=== PATIENT | female | born 1930 | race Caucasian/White ===

== ENCOUNTER → 2016-08-27 | Outpatient (CLI) | payer MEDICARE ==
[~2016-08-27] VITALS: Ht 165.1 cm; Wt 95.3 kg
[~2016-08-27] MED LIST: ASP325TEC PO; ATN25T; BROM1POW5 MC; BROMELAIN PO; BUPIVACAINE 0.25% 30 ML (SENSORCAINE) VIAL ONE; CALCIUM PO; CHOL100011 PO; CHOL40002 PO; CLOP75TA PO; EZET10TA5 PO; GLIM1TAB PO; GLUC1TAB60 PO; GLUCOSAMINE HCL PO; HCT25T PO; HYDR-3454 PO; HYDR1TAB66 PO; ISM30TCR PO; LISI10TA PO; MTF500T; NEBI2.5T5 PO; OMEG-34 PO; OMG1KC PO; ONDAN4ODT PO; OXYC-12 PO; PRD20T PO; PRM25T PO; REPLENEX; RLX60T PO; SIMV20TA3 PO; SIMV40TA2 PO; SITA1TAB2 PO; SULF1TAB35 PO; TRIAMCINOLONE ACET (KENALOG-40) 40 MG/ML 1 ML VIAL ONE; [UNRECOGNIZED DRUG - OTHER]; [UNRECOGNIZED DRUG - OTHER] PO
--- OUTSIDE RECORDS SUMMARY | 2016-08-27 12:51 | XMS REPORT | Continuity of Care Document ---
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 Name Role Phone EVITA SARAVIA DO PCP Insurance Providers Payer Name Policy Number Subscriber Name Relationship Wps Medicare [id number] Leslie Stevenson 18 Self / Same As Patient Blue Cross [facility] Supp [id number] Leslie Stevenson 18 Self / Same As Patient Advance Directives Directive Response Recorded Date/Time Advance Directives Yes 05/07/16 12:33pm Health Care Power of Journal Clerk Yes 05/07/16 12:33pm Organ Donor Yes 05/07/16 12:33pm Resuscitation Status Full Code 05/07/16 12:33pm Problems Active Problems Medical Problem Onset Date Status Cat scratch of left lower leg Unknown Acute Medications Current Home Medications Medication Dose Units Route Directions Days/Qty Instructions Start Date Aspirin 325 Mg 325 Mg Oral Daily 08/14/08 Raloxifene Hcl 60 Mg 60 Mg Oral Daily 08/14/08 Sitagliptin Phos/Metformin Hcl 1 Each 5 - 500 Mg Oral Daily SUPPER TIME 12/11/10 Glimepiride 1 Mg 1 Mg Oral Daily SUPPER TIME 12/11/10 Nebivolol Hcl 2.5 Mg 2.5 Mg Oral Daily 12/11/10 Clopidogrel Bisulfate 75 Mg 75 Mg Oral Daily 12/11/10 Isosorbide Mononitrate 30 Mg 30 Mg Oral Daily 12/11/10 Hydrochlorothiazide 25 Mg 25 Mg Oral Daily 12/11/10 Hydrocodone Bit/Acetaminophen 1 Each 5 - 500 Mg Oral Daily as needed PRN FOR PAIN 12/11/10 [Replenex] Daily 09/08/12 [Green Tea Demetra] Daily 09/08/12 Lisinopril 10 Mg 10 Mg Oral Bedtime 09/08/12 Simvastatin 20 Mg 20 Mg Oral Bedtime 10/21/12 Cholecalciferol (Vitamin D3) 4,000 Unit 4,000 Unit Oral Daily [Calcium] 300 Mg Oral Daily 10/21/12 [Glucosamine Hcl] 300 Mg Oral Daily 10/21/12 [Bromelain] 1,500 Mg Oral Daily 10/21/12 [place]-3/Dha/Epa/Fish Oil 1 Each 1,500 Mg Oral Twice A Day 10/21/12 Hydrocodone Bit/Acetaminophen 1 Each 1 Each Oral 10/31/12 Ondansetron Hcl 4 Mg 4 Mg Oral Q 6 Hr Prn 10 10/31/12 Sulfamethoxazole/Trimethoprim 1 Each 1 Each Oral Twice A Day 20 Past Home Medications Medication Directions Ordered Status Simvastatin 40 Mg Tablet, 20 Mg Oral Bedtime 08/14/08 Discontinued Metformin Hcl 500 Mg Tab, 08/14/08 Discontinued Ezetimibe 10 Mg Tablet, 10 Mg Oral Bedtime 12/11/10 Discontinued Cholecalciferol 1,000 Unit Capsule, 4000 Unit Oral Daily 12/11/10 Discontinued [Calcium] , 1 Tab Oral Twice A Day 12/11/10 Discontinued [Multi Vitamin Pkts] , 2 Packet Oral Daily 12/11/10 Discontinued Hjwaoull-Pfdjjah-Cupo 149-Hyal 1 Each Tablet, 1 Each Oral Daily 12/11/10 Discontinued Oxycodone Hcl/Acetaminophen 1 Each Tablet, 1 - 2 Each Oral 4 - 6 Hrs as needed 12/14/10 Discontinued Promethazine Hcl 25 Mg Tab, 50 Mg Oral Every 6 Hours as needed 12/14/10 Discontinued Bromelains 1 Gm Powder, 1 Gm Miscell Daily 09/08/12 Discontinued Fish Oil 1,000 Mg Cap, 1000 Mg Oral Daily 09/08/12 Discontinued Social History Social History Problem Response Recorded Date/Time Alcohol Use Denies Use 01/16/2016 10:54pm Recreational Drug Use No 01/16/2016 10:54pm Recent Foreign Travel No 05/07/2016 12:35pm Recent Infectious Disease Exposure No 05/07/2016 12:35pm Sexually Transmitted Disease No 01/16/2016 10:54pm Do you dip or chew tobacco? No 01/16/2016 10:54pm Sexually Transmitted Disease No 01/16/2016 10:54pm Hx Sexually Transmitted Disorders No 10/30/2012 6:00am Hospital Discharge Instructions No hospital discharge instructions. Plan of Care Discharge Date 05/07/16 1:10pm Instructions/Education Provided DR. BRYANT-POST EPIDURAL INST Prescriptions See Medication Section Functional Status No functional status results. Allergies, Adverse Reactions, Alerts Allergen Type Severity Reaction Status Last Updated Cephalosporins ([id number]) Allergy Unknown Active 09/05/07 Tetanus Vaccines & Toxoid ([id number]) Allergy Unknown Active 01/17/16 Hydrochlorothiazide Allergy Unknown Active 09/05/07 Terbinafine Allergy Unknown Active 09/05/07 Immunizations No immunization records. Vital Signs Acute Vital Signs Vital Response Date/Time Temperature (Fahrenheit) 98.9 degrees F (97.6 - 99.5) 05/07/2016 12:34pm Temperature (Calculated Celsius) 37.20098 degrees C (36.4 - 37.5) 05/07/2016 12:34pm Temperature Source Tympanic 05/07/2016 12:34pm Pulse Rate (adult) 68 bpm (60 - 90) 05/07/2016 1:09pm Respiratory Rate 18 bpm (12 - 24) 05/07/2016 1:09pm O2 Sat by Pulse Oximetry 99 % (88 - 100) 05/07/2016 1:09pm Blood Pressure 153/85 mm Hg 05/07/2016 1:09pm Blood Pressure Mean 89 mm Hg 05/07/2016 12:34pm Pain Numeric Pain Scale 2 05/07/2016 1:09pm Height (Feet) 5 feet 05/07/2016 12:33pm Height (Inches) 6.00 inches 05/07/2016 12:33pm Height (Calculated Centimeters) 167.538395 cm 05/07/2016 12:33pm Weight (Pounds) 205 pounds 05/07/2016 12:33pm Weight (Ounces) 0.0 oz 05/07/2016 12:33pm Weight (Calculated Grams) 73095.44 gm 05/07/2016 12:33pm Weight (Calculated Kilograms) 92.752574 kilograms 05/07/2016 12:33pm Calculated BMI 33.1 05/07/2016 12:33pm Results No known relevant diagnostic tests, laboratory data and/or discharge summary. Procedures No known history of procedures. Encounters Encounter Location Arrival/Admit Date Discharge/Depart Date Attending Provider Registered Clinic [facility] 05/07/16 12:14pm MARIUSZ BRYANT MD
[2016-08-27 13:08] VITALS: BP 177/74
[2016-08-27 13:46] VITALS: BP 167/79
--- NOTE | 2016-08-27 14:49 | Pain Medicine-Procedure ---
Procedure Pre-Op/Post-Op Diagnosis Diagnosis: disc disorder with radiculopathy, lumbar Indications for Operation Low back pain Attending Surgeon Moni Procedure Date of Service: Aug 27, 2016 Procedure: Lumbar Epidural Steroid Injection at the L4-L5 level under Fluoroscopic Guidance Procedure: Patient was identified in the holding area. After risks, benefits, and alternatives were discussed with the patient, informed consent was obtained. Patient was brought to the fluoroscopy suite and placed prone on the procedure room table. A time out was performed. Vital signs were monitored throughout the procedure. The patients low back was prepped and draped in the usual sterile fashion. The patients skin was anesthetized using 2% Lidocaine. A Tuohy needle was inserted and advanced to the L4-L5 epidural space under fluoroscopic guidance using the loss of resistance technique and intermittent projection of fluoroscopy. There was no paresthesia with needle placement. The needle position was confirmed in both the AP and lateral view. After negative aspiration 2ml of contrast was injected under live fluoroscopy which showed good spread of the contrast in the epidural space at the appropriate level, there was no intravascular or subarachnoid spread. Again, after negative aspiration for heme or CSF, 2 ml of 0.25% Bupivicaine, 2ml of preservative free normal saline, and 80mg of Kenalog was injected. The needle was removed and a sterile bandage was placed and the patient was transferred to the recovery area in stable condition. After a brief period of observation, patient was discharged to home with no new neurological deficits and no apparent complications. Complications None MARIUSZ BRYANT MD Aug 27, 2016 2:49 pm
== END ==
LOC: CARD 12:47
PROVIDERS: ATTEND Pain Medicine Pain Medicine
DX: M51.16 Intervertebral disc disorders with radiculopathy, lumbar region (principal); Z79.899 Other long term (current) drug therapy; M16.12 Unilateral primary osteoarthritis, left hip; M70.61 Trochanteric bursitis, right hip
CPT/HCPCS: 62323

== ENCOUNTER → 2016-08-29 | Outpatient (CLI) | payer MEDICARE ==
[~2016-08-29] MED LIST changes: -BUPIVACAINE 0.25% 30 ML (SENSORCAINE) VIAL ONE; +CATHETER FLUSH 10 ML SYR IV PRN; +REGADENOSON 0.4 MG/5 ML SYR (LEXISCAN) IV ONE; -TRIAMCINOLONE ACET (KENALOG-40) 40 MG/ML 1 ML VIAL ONE
--- OUTSIDE RECORDS SUMMARY | 2016-08-29 08:33 | XMS REPORT | Continuity of Care Document ---
Author Author [facility] Organization [facility] Address Unknown Phone Unavailable Care Team Providers Care Delicatessen Manager Name Role Phone EVITA SARAVIA DO PCP Insurance Providers Payer Name Policy Number Subscriber Name Relationship Wps Medicare [id number] Leslie Stevenson 18 Self / Same As Patient Blue Cross [facility] Supp [id number] Leslie Stevenson 20 Self / Same As Patient Advance Directives Directive Response Recorded Date/Time Advance Directives Yes 05/07/16 12:33pm Health Care Power of Cash Register Operator Yes 05/07/16 12:33pm Organ Donor Yes 05/07/16 [...] 10/21/12 [Bromelain] 1,500 Mg Oral Daily 10/21/12 [place]-3/Dha/Epa/Fish Oil 1 Each 1,500 Mg Oral Twice [...] , 2 Packet Oral Daily 12/11/10 Discontinued Xpkklhaf-Sskhvvp-Xlbk 149-Hyal 1 Each Tablet, 1 Each Oral [...] Type Severity Reaction Status Last Updated Cephalosporins ([id number]) Allergy Unknown Active 09/05/07 Tetanus Vaccines & Toxoid ([id number]) Allergy Unknown Active 01/17/16 Hydrochlorothiazide Allergy Unknown Active 09/05/07 Terbinafine Allergy Unknown Active 09/05/07 Immunizations No immunization records. Vital Signs Acute Vital Signs Vital Response Date/Time Temperature (Fahrenheit) 98.9 degrees F (97.6 - 99.5) 05/07/2016 12:34pm Temperature (Calculated Celsius) 37.93852 degrees C (36.4 - 37.5) 05/07/2016 12:34pm [...] 6.00 inches 05/07/2016 12:33pm Height (Calculated Centimeters) 167.499661 cm 05/07/2016 12:33pm Weight (Pounds) 205 pounds 05/07/2016 12:33pm Weight (Ounces) 0.0 oz 05/07/2016 12:33pm Weight (Calculated Grams) 57088.44 gm 05/07/2016 12:33pm Weight (Calculated Kilograms) 92.332477 kilograms 05/07/2016 12:33pm Calculated BMI 33.1 05/07/2016 12:33pm Results No known relevant diagnostic tests, laboratory data and/or discharge summary. Procedures No known history of procedures. Encounters Encounter Location Arrival/Admit Date Discharge/Depart Date Attending Provider Registered Clinic [facility] 05/07/16 12:14pm MARIUSZ BRYANT MD
[2016-08-29 13:03] VITALS: BP 146/67
[2016-08-29 13:07] VITALS: BP 151/66
[2016-08-29 13:09] VITALS: BP 139/69
[2016-08-29 13:11] VITALS: BP 136/65
--- NOTE | 2016-08-30 09:28 | ECHOCARDIOGRAPHY REPORT ---
PROCEDURE PHYSICIAN: BASILIA BIRD DATE OF PROCEDURE: 08/29/2016 TWO DIMENSIONAL ECHOCARDIOGRAM REPORT PRIMARY PHYSICIAN: OTHER PHYSICIAN: REFERRING PHYSICIAN: Dr. Santacruz ORDERING PHYSICIAN: INDICATION FOR THE PROCEDURE: 1. Chest pain. 2. Coronary artery disease. MEASUREMENTS DERIVED VALUES LV DIAMETER (LAX) NORMALS NORMALS Diastolic 4.4 (3.6-5.2) Eject. Fract. 60% (60%+/-6%) Systolic (2.3-3.9) Diastolic Vol. % Shortening (0.22-0.42) Systolic Vol. Aortic Root IVS THICKNESS Diastolic 1.2 (0.6-1.1) LVPW THICKNESS Diastolic 1.2 (0.6-1.1) LA DIAMETER Systolic 3.7 (2.1-3.7) FINDINGS: 1. Technical quality is good. 2. The left ventricle is normal in size with moderate left ventricular hypertrophy noted diffusely. Systolic function appeared to be normal. Estimated ejection fraction 60%. Diastolic dysfunction is suggested by Doppler. 3. The left atrium is normal in size. No clot or thrombus were seen within the left atrium. 4. The right atrium and right ventricle are normal in size. No clot or thrombus were seen within the right side. 5. 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 No mitral valve prolapse. No mitral valve stenosis. 6. Aortic valve is trileaflet with normal opening and closing pattern. No significant aortic stenosis or regurgitation was seen. 7. Tricuspid valve is normal in morphology with mild tricuspid regurgitation noted by color Doppler flow. Doppler across tricuspid valve estimated pulmonary artery pressure of 27+ right atrial pressure. 8. Pulmonic valve is functioning normally. 9. No pericardial effusion. IN CONCLUSION: 1. Mild left ventricular hypertrophy noted diffusely with normal systolic function. Estimated ejection fraction 60%. Diastolic dysfunction is suggested by Doppler. 2. Mild mitral and tricuspid regurgitation. 3. Estimated pulmonary artery pressure of 35 mmHg. Job ID: [id number] Dictated Date: 08/29/2016 17:23:42 Letterer Date: 08/30/2016 09:23:32 / fredo
--- NOTE | 2016-08-30 12:13 | STRESS TEST ---
PROCEDURE PHYSICIAN: BASILIA BIRD LEXISCAN MYOVIEW STRESS TEST REPORT: DATE OF PROCEDURE: 08/29/2016 REFERRING PHYSICIAN: Dr. Santacruz INDICATION: Coronary artery disease, chest pain. Baseline heart rate is 63, baseline blood pressure: 145/65. Baseline EKG: Sinus rhythm with no ischemic changes. SUMMARY: The patient was injected with 10.69 mCi of technetium 99 Myoview and the resting images were obtained. Then the patient received 0.4 mg of Lexiscan followed by 31.2 mCi of technetium 99 Myoview. Throughout the test, there were no EKG changes. The resting and stress images were reviewed and compared in the short axis, horizontal long axis, and vertical long axis views. Review of the images showed breast attenuation affecting the quality of the images with no significant ischemia or infarction on SPECT images. SSS is 1, SDS 1, TID value 1.03. On the gated images, the left ventricle is appeared to be normal size with normal contractility. Calculated ejection fraction 72%. CONCLUSION: 1. The patient tolerated Lexiscan well. 2. Breast attenuation affecting the quality of the images with no significant ischemia or infarction on SPECT images. 3. Normal left ventricular size with normal contractility. Calculated ejection fraction 72%. Job ID: [id number] Dictated Date: 08/30/2016 08:42:40 Director Of Employer Services Date: 08/30/2016 12:07:31 / wolf
== END ==
LOC: CARD 08:30
PROVIDERS: ATTEND Internal Medicine Cardiovascular Disease
DX: I25.10 Atherosclerotic heart disease of native coronary artery without angina pectoris (principal); I65.23 Occlusion and stenosis of bilateral carotid arteries; I10 Essential (primary) hypertension; E78.2 Mixed hyperlipidemia; R07.9 Chest pain, unspecified
CPT/HCPCS: 78452; 93017; 93306

== ENCOUNTER 2016-08-31 23:37 | Emergency (ER) | payer MEDICARE ==
[~2016-08-31] VITALS: Ht 165.1 cm; Wt 94.8 kg
[~2016-08-31 23:37] MED LIST changes: -CATHETER FLUSH 10 ML SYR IV PRN; -PRD20T PO; -REGADENOSON 0.4 MG/5 ML SYR (LEXISCAN) IV ONE
--- OUTSIDE RECORDS SUMMARY | 2016-08-31 23:44 | XMS REPORT | Continuity of Care Document ---
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 Machine Operator Name Role Phone EVITA SARAVIA DO PCP Insurance Providers Payer Name Policy Number Subscriber Name Relationship Wps Medicare [id number] Leslie Stevenson 20 Self / Same As Patient Blue Cross [facility] Supp [id number] Leslie Stevenson 20 Self / Same As Patient Advance Directives Directive Response Recorded Date/Time Advance Directives Yes 05/07/16 12:33pm Health Care Power of Receiving Coordinator Yes 05/07/16 12:33pm Organ Donor Yes 05/07/16 [...] 10/21/12 [Bromelain] 1,500 Mg Oral Daily 10/21/12 [place]-3/Dha/Epa/Fish Oil 1 Each 1,500 Mg Oral Twice [...] , 2 Packet Oral Daily 12/11/10 Discontinued Firiylfp-Sfsrlzy-Ptie 149-Hyal 1 Each Tablet, 1 Each Oral [...] Type Severity Reaction Status Last Updated Cephalosporins ([id number]) Allergy Unknown Active 09/05/07 Tetanus Vaccines & Toxoid ([id number]) Allergy Unknown Active 01/17/16 Hydrochlorothiazide Allergy Unknown Active 09/05/07 Terbinafine Allergy Unknown Active 09/05/07 Immunizations No immunization records. Vital Signs Acute Vital Signs Vital Response Date/Time Temperature (Fahrenheit) 98.9 degrees F (97.6 - 99.5) 05/07/2016 12:34pm Temperature (Calculated Celsius) 37.54801 degrees C (36.4 - 37.5) 05/07/2016 12:34pm [...] 6.00 inches 05/07/2016 12:33pm Height (Calculated Centimeters) 167.436332 cm 05/07/2016 12:33pm Weight (Pounds) 205 pounds 05/07/2016 12:33pm Weight (Ounces) 0.0 oz 05/07/2016 12:33pm Weight (Calculated Grams) 73014.44 gm 05/07/2016 12:33pm Weight (Calculated Kilograms) 92.648753 kilograms 05/07/2016 12:33pm Calculated BMI 33.1 05/07/2016 12:33pm Results No known relevant diagnostic tests, laboratory data and/or discharge summary. Procedures No known history of procedures. Encounters Encounter Location Arrival/Admit Date Discharge/Depart Date Attending Provider Registered Clinic [facility] 05/07/16 12:14pm MARIUSZ BRYANT MD
[2016-09-01] MEDS ORDERED: predniSONE 20 MG TAB PO ONE (01:30)
--- NOTE | 2016-09-01 01:30 | ED Respiratory ---
General Chief Complaint: Chest Wall/Rib Pain Stated Complaint: SOB,SORENESS OF CHEST FROM COUGHING Nursing Triage Note: wyatt rib and back pain due to cough. pt saw physican earlier today prescribed levoquin and instruted to take home pain medication. pt states has not taken any pain med today. Source: patient Exam Limitations: no limitations History of Present Illness Time seen by provider: 01:10 Initial Comments Here with report of persistent cough. She did see her doctor earlier yesterday and was started on Levaquin. She also was given prescription for pain medicine but she is afraid to take that. States the cough is been going on for a couple of days and is much worse tonight. Also complains of nasal congestion and runny nose. She has taken one dose of her antibiotic. Denies nausea or vomiting. Complains of pain to her ribs on the lower aspect bilateral with each cough and some mild wheezing. Timing/Duration: getting worse, other (2 days) Severity: moderate Prior Episodes/Possible Cause: occasional episodes Associated Symptoms: coughNo fever/chills, nasal congestion nasal drainage shortness of breath wheezing Allergies and Home Medications Allergies Coded Allergies: Cephalosporins (Verified Allergy, Unknown, 09/05/07) Tetanus Vaccines and Toxoid (Unverified Allergy, Unknown, 01/17/16) hydrochlorothiazide (Verified Allergy, Unknown, 09/05/07) terbinafine (Verified Allergy, Unknown, 09/05/07) Home Medications DAILY (Reported) DAILY (Reported) 300 MG PO DAILY (Reported) 300 MG PO DAILY (Reported) 1,500 MG PO DAILY (Reported) Aspirin 325 Mg Tabec 325 MG PO DAILY (Reported) Cholecalciferol (Vitamin D3) 4,000 Unit Capsule 4,000 UNIT PO DAILY (Reported) Clopidogrel Bisulfate 75 Mg Tablet 75 MG PO DAILY (Reported) Glimepiride 1 Mg Tablet 1 MG PO DAILY (Reported) SUPPER TIME Hydrochlorothiazide 25 Mg Tablet 25 MG PO DAILY (Reported) Hydrocodone Bit/Acetaminophen 1 Each Tablet 5-500 MG PO DAILY PRN PRN (Reported ) PRN FOR PAIN Hydrocodone Bit/Acetaminophen 1 Each Tablet 1 EACH PO (Reported) Isosorbide Mononitrate 30 Mg Tab 30 MG PO DAILY (Reported) Lisinopril 10 Mg Tablet 10 MG PO HS (Reported) Nebivolol Hcl 2.5 Mg Tablet 2.5 MG PO DAILY (Reported) [place]-3/Dha/Epa/Fish Oil 1 Each Capsule 1,500 MG PO BID (Reported) Ondansetron Hcl 4 Mg Tab #10 4 MG PO Q 6 HR PRN (Reported) Raloxifene Hcl 60 Mg Tab 60 MG PO DAILY (Reported) Simvastatin 20 Mg Tablet 20 MG PO HS (Reported) Sitagliptin Phos/Metformin Hcl 1 Each Tablet 5-500 MG PO DAILY (Reported) SUPPER TIME Sulfamethoxazole/Trimethoprim 1 Each Tablet #20 1 EACH PO BID Prescribed by: TEJAL BARTLETT on 01/16/16 [id number] Constitutional: see HPINo chills, No fever EENTM: nose congestion see HPI Respiratory: see HPI cough wheezing Cardiovascular: see HPINo palpitations Gastrointestinal: no symptoms reported Genitourinary: no symptoms reported incontinence (stress) : No All Other Systems Reviewed Negative Unless Noted: Yes Past Becmsqn-Fkxkdf-Ywfcvv Hx Patient Social History Alcohol Use: Denies Use Recreational Drug Use: No Smoking Status: Never a Smoker Recent Foreign Travel: No Contact w/Someone Who Travel: No Recent Infectious Disease Expo: No Immunizations Up To Date Tetanus Booster (TDap): More than 5yrs Date of Pneumonia Vaccine: Oct 31, 2007 Date of Influenza Vaccine: Mar 31, 2012 Surgeries HX Surgeries: Yes (STENT PLACED) Surgeries: Cardiac, Coronary Stent Respiratory Hx Respiratory Disorders: No Cardiovascular Hx Cardiac Disorders: Yes (VARICOSE VEINS) Cardiac Disorders: Coronary Artery Disease, High Cholesterol, Hypertension Neurological Hx Neurological Disorders: No Reproductive System Hx Reproductive Disorders: No Sexually Transmitted Disease: No Genitourinary Hx Genitourinary Disorders: No Gastrointestinal Hx Gastrointestinal Disorders: Yes Gastrointestinal Disorders: Gastroesophageal Reflux Musculoskeletal Hx Musculoskeletal Disorders: Yes Musculoskeletal Disorders: Arthritis Endocrine Hx Endocrine Disorders: Yes Endocrine Disorders: Diabetes, Non-Insulin dep HEENT HX ENT Disorders: No Cancer Hx Cancer: No Psychosocial Hx Psychiatric Problems: No Integumentary HX Skin/Integumentary Disorder: No Blood Transfusions Hx Blood Disorders: No Reviewed Nursing Assessment Reviewed/Agree w Nursing PMH: Yes Family Medical History Significant Family History: No Pertinent Family Hx Physical Exam Vital Signs Vital Sign - Last 12Hours 08/31/16 23:51 Temp 98.0 Pulse 87 Resp 20 B/P 172/70 Pulse Ox 96 O2 Delivery Room Air Capillary Refill : NONE General Appearance: WD/WN no apparent distress HEENT: PERRL/EOMI pharynx normal other (moderate nasal congestion bilaterally with clear rhinorrhea and moderate erythema) Neck: full range of motion supple Respiratory: no respiratory distress no accessory muscle use wheezing (mild bilateral) Cardiovascular: regular rate, rhythm no murmur Gastrointestinal: non tender soft Neurologic/Psychiatric: alert oriented x 3 Progress/Results/Core Measures Results/Orders My Orders Orders-ALVAREZ CHAMBERS MD Chest Pa/Lat (2 View) (09/01/16 00:15) Prednisone Tablet (Deltasone Tablet) (09/01/16 01:30) Vital Signs/I&O Vital Sign - Last 12Hours 08/31/16 23:51 Temp 98.0 Pulse 87 Resp 20 B/P 172/70 Pulse Ox 96 O2 Delivery Room Air Blood Pressure Mean: 104 Progress Note : Progress Note Seen and evaluated. Chest x-ray ordered. Prednisone 40 mg by mouth. Discharged home with return precautions. Patient verbalize understanding instructions and agreement with plan. Diagnostic Imaging Diagonstic Imaging: Xray Plain Films/CT/US/NM/MRI: chest Comments Two-view chest x-ray shows no obvious infiltrate or pneumothorax. Reviewed: Reviewed by Me Departure Impression Impression: Primary Impression: Bronchitis Additional Impression: Upper respiratory infection Qualified Code: J06.9 - Acute upper respiratory infection, unspecified Disposition: HOME, SELF-CARE Condition: Stable Departure-Patient Inst. Decision time for Depature: 01:30 Referrals: EVITA SARAVIA DO (PCP/Family) Primary Care Physician Patient Instructions: Acute Bronchitis, Adult (DC), Viral Upper Respiratory Infection, Adult (DC) Add. Discharge Instructions: All discharge instructions reviewed with patient and/or family. Voiced understanding. Take medications as directed. You may use Afrin nasal spray or the generic, 12 hour relief, 2 sprays to each nostril twice daily for 3 days only and then stop. You may use the hydrocodone one tablet every 4-6 hours as needed for chest wall pain. Take the first prescribed dose of the prednisone on Saturday morning. Follow-up with your DrSalvador on Saturday if not improving. Return for worse pain, fever, vomiting, breathing problems or other concerns as needed. Drink plenty of fluids. Scripts Prednisone 20 Mg Tab40 Mg PO DAILY #6 TAB Prov:ALVAREZ CHAMBERS MD 09/01/16 ALVAREZ CHAMBERS MD Sep 01, 2016 01:30
[2016-09-01] MEDS ORDERED: PRD20T PO (01:33)
[2016-09-01 01:45] VITALS: BP 162/79
--- NOTE | 2016-09-01 06:54 | Diagnostic Imaging Report ---
Clinical indication: Patient with cough and congestion. Exam: Chest x-ray PA and lateral views. Comparisons: Chest x-ray dated 03/16/2013. Findings: Lungs/pleura: There is minimal bibasilar atelectasis. Otherwise, lungs are clear. There is no pneumothorax. There is no pleural effusion. Mediastinum: Unremarkable. Pulmonary vasculature: Unremarkable. Heart: There is mild cardiomegaly. Bones/extrathoracic soft tissue: There are hypertrophic degenerative osteophytes scattered throughout the thoracic spine. Impression: 1: There is minimal bibasilar atelectasis. Otherwise, there is no radiographic evidence of acute cardiopulmonary process. 2: Mild cardiomegaly with no significant pulmonary vascular congestion. Dictated by: Dictated on workstation # [id number]
== END 2016-09-01 01:55 | disposition home or self-care (01) ==
LOC: EDUNIT# 23:37 → ER 23:41
DX: J40 Bronchitis, not specified as acute or chronic (principal); R06.9 Unspecified abnormalities of breathing; I10 Essential (primary) hypertension; E11.9 Type 2 diabetes mellitus without complications; Z79.84 Long term (current) use of oral hypoglycemic drugs; Z79.899 Other long term (current) drug therapy; Z79.02 Long term (current) use of antithrombotics/antiplatelets; Z95.5 Presence of coronary angioplasty implant and graft
CPT/HCPCS: 71020; 99282

== ENCOUNTER 2016-11-02 09:35 | Outpatient (CLI) | payer MEDICARE ==
[~2016-11-02] VITALS: Ht 165.1 cm; Wt 94.8 kg
[~2016-11-02 09:35] MED LIST changes: +PRD20T PO
[2016-11-02] MEDS ORDERED: BUPIVACAINE 0.25% 30 ML (SENSORCAINE) VIAL ONE (09:50)
[2016-11-02] MEDS ORDERED: TRIAMCINOLONE ACET (KENALOG-40) 40 MG/ML 1 ML VIAL ONE (09:50)
[2016-11-02 09:55] VITALS: BP 140/69
[2016-11-02 11:10] VITALS: BP 151/67
--- NOTE | 2016-11-02 12:31 | Pain Medicine-Procedure ---
Procedure Pre-Op/Post-Op Diagnosis Diagnosis: disc disorder with radiculopathy, lumbar Indications for Operation Low back pain Attending Surgeon Moni Procedure Date of Service: Nov 02, 2016 Procedure: Lumbar Epidural Steroid Injection at the L4-L5 level under Fluoroscopic Guidance Procedure: Patient was identified in the holding area. After risks, benefits, and alternatives were discussed with the patient, informed consent was obtained. Patient was brought to the fluoroscopy suite and placed prone on the procedure room table. A time out was performed. Vital signs were monitored throughout the procedure. The patients low back was prepped and draped in the usual sterile fashion. The patients skin was anesthetized using 2% Lidocaine. A Tuohy needle was inserted and advanced to the L4-L5 epidural space under fluoroscopic guidance using the loss of resistance technique and intermittent projection of fluoroscopy. There was no paresthesia with needle placement. The needle position was confirmed in both the AP and lateral view. After negative aspiration 2ml of contrast was injected under live fluoroscopy which showed good spread of the contrast in the epidural space at the appropriate level, there was no intravascular or subarachnoid spread. Again, after negative aspiration for heme or CSF, 2 ml of 0.25% Bupivicaine, 2ml of preservative free normal saline, and 80mg of Kenalog was injected. The needle was removed and a sterile bandage was placed and the patient was transferred to the recovery area in stable condition. After a brief period of observation, patient was discharged to home with no new neurological deficits and no apparent complications. Complications None MARIUSZ BRYANT MD Nov 02, 2016 12:31 pm
== END 2016-11-02 11:17 | disposition home or self-care (01) ==
LOC: CARD 09:35
PROVIDERS: ATTEND Pain Medicine Pain Medicine
DX: M51.16 Intervertebral disc disorders with radiculopathy, lumbar region (principal); Z79.899 Other long term (current) drug therapy
CPT/HCPCS: 62323

== ENCOUNTER 2016-12-14 08:33 | Outpatient (CLI) | payer MEDICARE ==
[~2016-12-14] VITALS: Ht 165.1 cm; Wt 92.5 kg
[2016-12-14] MEDS ORDERED: BUPIVACAINE 0.25% 30 ML (SENSORCAINE) VIAL ONE (08:48)
[2016-12-14] MEDS ORDERED: TRIAMCINOLONE ACET (KENALOG-40) 40 MG/ML 1 ML VIAL ONE (08:48)
[2016-12-14 09:01] VITALS: BP 124/69
[2016-12-14 09:31] VITALS: BP 146/68
--- NOTE | 2016-12-14 12:39 | Pain Medicine-Procedure ---
Procedure Pre-Op/Post-Op Diagnosis Diagnosis: disc disorder with radiculopathy, lumbar Indications for Operation Low back and hip pain Attending Surgeon Moni Procedure Date of Service: December 14, 2016 Procedure: Lumbar Epidural Steroid Injection at the L4-L5 Level under Fluoroscopic Guidance and left sacroiliac joint injection Procedure: Patient was identified in the holding area. After risks, benefits, and alternatives were discussed with the patient, informed consent was obtained. Patient was brought to the fluoroscopy suite and placed prone on the procedure room table. A time out was performed. Vital signs were monitored throughout the procedure. The patients low back was prepped and draped in the usual sterile fashion. The patients skin was anesthetized using 2% Lidocaine. A Tuohy needle was inserted and advanced to the L4-L5 epidural space under fluoroscopic guidance using the loss of resistance technique and intermittent projection of fluoroscopy. There was no paresthesia with needle placement. The needle position was confirmed in both the AP and lateral view. After negative aspiration 2ml of non-ionic contrast was injected under live fluoroscopy which showed good spread of the contrast in the epidural space at the appropriate level, there was no intravascular or subarachnoid spread. Again, after negative aspiration for heme or CSF, 2 ml of 0.25% Bupivicaine, 2ml of preservative free normal saline, and 80mg of Kenalog was injected. The needle was removed and a sterile bandage was placed. Attention was then directed to the left sacroiliac joint which was identified under fluoroscopic guidance. The skin overlying the posterior inferior one third of the sacroiliac joint was anesthetized with 1 percent lidocaine and a 22 -gauge 3-1/2 inch needle was inserted and advanced into the joint. Following negative aspiration a total of 40 mg of Kenalog and 2 mL of 0.25 percent bupivacaine was injected. Needle was flushed with lidocaine and removed. Sterile bandage was applied. Patient tolerated the procedures well with no apparent complications. Complications None MARIUSZ BRYANT MD December 14, 2016 12:39 pm
== END 2016-12-14 09:33 ==
LOC: CARD 08:33
PROVIDERS: ATTEND Pain Medicine Pain Medicine
DX: M53.3 Sacrococcygeal disorders, not elsewhere classified (principal); M51.16 Intervertebral disc disorders with radiculopathy, lumbar region; Z79.84 Long term (current) use of oral hypoglycemic drugs
CPT/HCPCS: 27096; 62323

== ENCOUNTER → 2017-02-01 | Outpatient (CLI) | payer MEDICARE ==
--- NOTE | 2017-02-01 14:25 | Diagnostic Imaging Report ---
PROCEDURE: US left lower extremity venous. INDICATION: Left calf pain and swelling. COMPARISON: None. TECHNIQUE: The left lower extremity deep venous system was interrogated from the common femoral vein through the popliteal vein. These images were assessed for grayscale appearance, color and spectral Doppler blood flow, compression, and augmentation. FINDINGS: There is no evidence of intraluminal filling defect. Normal compression and augmentation is noted throughout. Soft tissues are unremarkable. IMPRESSION: 1. No sonographic evidence of deep venous thrombosis in the left lower extremity. Dictated by: Dictated on workstation # [id number]
--- NOTE | 2017-02-01 14:33 | Diagnostic Imaging Report ---
INDICATION: Left knee pain. FINDINGS: Three view show smooth articulating surfaces. Joint space is mildly narrowed medially on nonweightbearing images. There are mild osteophytes along the medial femoral condyle and tibial plateau. The patellofemoral joint appears normal. There are no fractures. No chondrocalcinosis or loose bodies. IMPRESSION: Mild degenerative changes in the medial compartment. Dictated by: Dictated on workstation # [id number]
== END ==
LOC: RAD 13:50
PROVIDERS: ATTEND Nurse Practitioner Family
DX: M79.662 Pain in left lower leg (principal); R22.42 Localized swelling, mass and lump, left lower limb
CPT/HCPCS: 73562

== ENCOUNTER 2017-08-06 11:39 | Emergency (ER) | payer MEDICARE ==
[~2017-08-06] VITALS: Ht 165.1 cm; Wt 90.7 kg
--- NOTE | 2017-08-06 13:08 | ED Lower Extremity ---
General Chief Complaint: Lower Extremity Stated Complaint: RT CALF PAIN Nursing Triage Note: Pt c/o R calf pain x2 days Nursing Sepsis Screen: No Definite Risk Source: patient Exam Limitations: no limitations History of Present Illness Time seen by provider: 12:58 Initial Comments Here with report of right calf pain for the last 2 days. Not sure if she injured it or what but is concerned about blood clots. She does admit to lifting her several times over the last couple weeks. Denies shortness of breath or other concerns. Onset: other (2 days) Severity: mild, moderate Pain/Injury Location: right leg Method of Injury: unknown Modifying Factors: Worse With Movement, Improves With Rest Allergies and Home Medications Allergies Coded Allergies: Cephalosporins (Verified Allergy, Unknown, 09/05/07) Tetanus Vaccines and Toxoid (Unverified Allergy, Unknown, 01/17/16) hydrochlorothiazide (Verified Allergy, Unknown, 09/05/07) terbinafine (Verified Allergy, Unknown, 09/05/07) Home Medications Aspirin 325 Mg Tabec, 325 MG PO DAILY, (Reported) Cholecalciferol (Vitamin D3) 4,000 Unit Capsule, 4,000 UNIT PO DAILY, (Reported) Clopidogrel Bisulfate 75 Mg Tablet, 75 MG PO DAILY, (Reported) Glimepiride 1 Mg Tablet, 1 MG PO DAILY, (Reported) SUPPER TIME Hydrochlorothiazide 25 Mg Tablet, 25 MG PO DAILY, (Reported) Hydrocodone Bit/Acetaminophen 1 Each Tablet, 5-500 MG PO DAILY PRN, (Reported) PRN FOR PAIN Hydrocodone Bit/Acetaminophen 1 Each Tablet, 1 EACH PO, (Reported) Isosorbide Mononitrate 30 Mg Tab, 30 MG PO DAILY, (Reported) Lisinopril 10 Mg Tablet, 10 MG PO HS, (Reported) Nebivolol Hcl 2.5 Mg Tablet, 2.5 MG PO DAILY, (Reported) Piedmont-3/Dha/Epa/Fish Oil 1 Each Capsule, 1,500 MG PO BID, (Reported) Ondansetron Hcl 4 Mg Tab, 4 MG PO Q 6 HR PRN, #10 (Reported) Prednisone 20 Mg Tab, 40 MG PO DAILY, #6 Prescribed by: ALVAREZ CHAMBERS on 09/01/16 0133 Raloxifene Hcl 60 Mg Tab, 60 MG PO DAILY, (Reported) Simvastatin 20 Mg Tablet, 20 MG PO HS, (Reported) Sitagliptin Phos/Metformin Hcl 1 Each Tablet, 5-500 MG PO DAILY, (Reported) SUPPER TIME Sulfamethoxazole/Trimethoprim 1 Each Tablet, 1 EACH PO BID, #20 Prescribed by: TEJAL BARTLETT on 01/16/16 2321 [Bromelain] , 1,500 MG PO DAILY, (Reported) [Calcium] , 300 MG PO DAILY, (Reported) [Glucosamine Hcl] , 300 MG PO DAILY, (Reported) [green tea lakhwinder] , DAILY, (Reported) [replenex] , DAILY, (Reported) Constitutional: see HPI, No chills, No fever Respiratory: no symptoms reported Cardiovascular: No chest pain, edema (right leg), No palpitations Gastrointestinal: No abdominal pain, No nausea, No vomiting Musculoskeletal: joint pain, muscle pain, muscle stiffness Skin: No change in color, No lesions Psychiatric/Neurological: Denies Numbness, Denies Tingling Past Moowrhe-Qhbynu-Moehne Hx Patient Social History Alcohol Use: Denies Use Recreational Drug Use: No Smoking Status: Never a Smoker Recent Foreign Travel: No Contact w/Someone Who Travel: No Recent Infectious Disease Expo: No Recent Hopitalizations: No Physical Abuse: No Sexual Abuse: No Mistreated: No Fear: No Immunizations Up To Date Tetanus Booster (TDap): More than 5yrs Date of Pneumonia Vaccine: Oct 31, 2007 Date of Influenza Vaccine: Mar 31, 2012 Seasonal Allergies Seasonal Allergies: No Surgeries History of Surgeries: Yes (right rotator cuff 2013) Surgeries: Cardiac, Coronary Stent, Gallbladder, Tonsillectomy Respiratory History of Respiratory Disorde: No Cardiovascular History of Cardiac Disorders: Yes (VARICOSE VEINS) Cardiac Disorders: Coronary Artery Disease, High Cholesterol, Hypertension Neurological History of Neurological Disord: No Reproductive System Hx Reproductive Disorders: No Sexually Transmitted Disease: No Gastrointestinal History of Gastrointestinal Di: Yes Gastrointestinal Disorders: Gastroesophageal Reflux Musculoskeletal History of Musculoskeletal Dis: Yes Musculoskeletal Disorders: Arthritis Endocrine History of Endocrine Disorders: Yes Endocrine Disorders: Diabetes, Non-Insulin dep HEENT History of HEENT Disorders: No Cancer History of Cancer: No Psychosocial History of Psychiatric Problem: No Suicide Risk Score: 1 Integumentary History of Skin or Integumenta: No Blood Transfusions History of Blood Disorders: No Reviewed Nursing Assessment Reviewed/Agree w Nursing PMH: Yes Family Medical History Significant Family History: No Pertinent Family Hx Physical Exam Vital Signs Vital Sign - Last 12Hours 08/06/17 12:42 Temp 98.5 Pulse 96 Resp 18 B/P (MAP) 160/63 (95) Pulse Ox 96 O2 Delivery Room Air Capillary Refill : Less Than 3 Seconds General Appearance: WD/WN, no apparent distress Cardiovascular: regular rate, rhythm, no murmur Respiratory: lungs clear, normal breath sounds Legs: left leg non-tender, left leg normal inspection, bilateral leg normal range of motion, right leg pain, right leg swelling Ankles: left ankle non-tender, left ankle normal inspection, bilateral ankle normal range of motion, right ankle swelling Neurologic/Psychiatric: alert, oriented x 3 Skin: normal color Progress/Results/Core Measures Results/Orders My Orders Orders - ALVAREZ CHAMBERS MD Venous Lower Ext Rt (08/06/17 13:06) Vital Signs/I&O Vital Sign - Last 12Hours 08/06/17 12:42 Temp 98.5 Pulse 96 Resp 18 B/P (MAP) 160/63 (95) Pulse Ox 96 O2 Delivery Room Air Blood Pressure Mean: 95 Progress Note : Progress Note Seen and evaluated. Ultrasound right lower extremity ordered. This was negative. Discharged home with return precautions. Patient verbalize understanding instructions and agreement with plan. Diagnostic Imaging Diagonstic Imaging: Ultrasound Plain Films/CT/US/NM/MRI: leg Comments NAME: LESLIE STEVENSON [facility] REC#: [id number] PT STATUS: REG ER : 1930 PHYSICIAN: ALVAREZ CHAMBERS MD ADMIT DATE: 08/06/17/ER Signed Date of Exam: 08/06/17 US VENOUS LOWER EXT RT INDICATION: Right leg pain. Right leg venous Doppler study was performed in the routine fashion with color flow Doppler and waveform analysis. FINDINGS: The right common femoral vein, superficial femoral vein, popliteal vein and visualized portion of the tibial veins show normal compressibility and venous flow patterns. There is normal augmentation. IMPRESSION: No evidence of deep vein thrombosis of the major veins of the right leg. Dictated by: Dictated on workstation # [id number] Dict: 08/06/17 1406 Trans: 08/06/17 1410 Interpreted by: CHILO PLUMMER MD Electronically signed by: CHILO PLUMMER MD 08/06/17 3377 Departure Impression Impression: Primary Impression: Right leg pain Additional Impression: Right leg swelling Disposition: HOME, SELF-CARE Condition: Improved Departure-Patient Inst. Decision time for Depature: 14:50 Referrals: EVITA SARAVIA DO (PCP/Family) Primary Care Physician Patient Instructions: Lower Extremity Muscle Strain (DC) Add. Discharge Instructions: All discharge instructions reviewed with patient and/or family. Voiced understanding. Follow-up with your Dr. in a few days for recheck as needed. Continue home medications as directed. You should elevate her leg several times daily to help reduce swelling. Return for worse pain, weakness, breathing problems, fever or other concerns as needed. Copy Copies To 1: EVITA SARAVIA TIMOTHY D MD Aug 06, 2017 13:08
--- NOTE | 2017-08-06 14:13 | Diagnostic Imaging Report ---
INDICATION: Right leg pain. Right leg venous Doppler study was performed in the routine fashion with color flow Doppler and waveform analysis. FINDINGS: The right common femoral vein, superficial femoral vein, popliteal vein and visualized portion of the tibial veins show normal compressibility and venous flow patterns. There is normal augmentation. IMPRESSION: No evidence of deep vein thrombosis of the major veins of the right leg. Dictated by: Dictated on workstation # [id number]
[2017-08-06 15:00] VITALS: BP 145/86
== END 2017-08-06 15:01 | disposition home or self-care (01) ==
LOC: EDUNIT# 11:39 → ER 11:41
DX: M79.661 Pain in right lower leg (principal); M79.89 Other specified soft tissue disorders; I25.10 Atherosclerotic heart disease of native coronary artery without angina pectoris; E78.00 Pure hypercholesterolemia, unspecified; I10 Essential (primary) hypertension; K21.9 Gastro-esophageal reflux disease without esophagitis; E11.9 Type 2 diabetes mellitus without complications; Z95.5 Presence of coronary angioplasty implant and graft; Z90.89 Acquired absence of other organs; Z79.82 Long term (current) use of aspirin; X50.0XXA Overexertion from strenuous movement or load, initial encounter
CPT/HCPCS: 99283

== ENCOUNTER → 2017-10-12 | Outpatient (CLI) | payer MEDICARE ==
--- NOTE | 2017-10-12 10:39 | Diagnostic Imaging Report ---
PROCEDURE: MRI lumbar spine. TECHNIQUE: Multiplanar, multisequence MRI of the lumbar spine was performed without contrast. DATE: 10/12/2017. COMPARISON: MRI lumbar spine 12/03/2015. INDICATION: 86-year-old female, low back pain. FINDINGS: L5-S1 is labeled as having a rudimentary disc. If spinal intervention is to be performed in the future, recommend careful correlation with levels. There is grade 1 anterolisthesis of L5 on S1 measuring 3.5 mm. There is minimal grade 1 anterolisthesis of L4 on L5. The visualized cord and conus medullaris is unremarkable and terminates at the L2-L3 level. There is a T1 and T2 hyperintense lesion in the T11 vertebral body compatible with benign vertebral body hemangioma. There are disc degenerative changes of the lower thoracic spine. There is moderate disc height loss at L1-L2. There is mild disc height loss at L3-L4. There is moderate to severe disc height loss at L4-L5. There is moderate disc height loss at L5-S1. There is no identified compression deformity. There is no evidence of marrow infiltrating or replacing process. There is benign T1 and T2 hyperintense signal in the S2 segment which may relate to hemangioma. L2-L3: There is minimal diffuse disc bulge. The facet joints and ligamentum flavum are unremarkable. There is no foraminal narrowing. There is no spinal canal stenosis. L3-L4: There is mild diffuse disc bulge with a superimposed left lateral recess disc extrusion which is causing severe narrowing of the left lateral recess. There are mild bilateral facet degenerative changes and ligamentum flavum hypertrophy. There is no high-grade foraminal narrowing. There is moderate spinal canal stenosis. L4-L5: There is diffuse disc bulge. There are severe facet degenerative changes with ligamentum flavum hypertrophy. There is mild bilateral foraminal narrowing. There is severe spinal canal stenosis. L5-S1: There is uncovering of the disc relating to the anterolisthesis. There is no disc protrusion or extrusion. There are moderate bilateral facet degenerative changes without prominent ligamentum flavum hypertrophy. There is no foraminal narrowing. There is no spinal canal stenosis. There is a T2 hyperintense left renal lesion not well characterized on this exam measuring 1.3 cm in size. IMPRESSION: 1. 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 If spinal intervention is to be performed in the future, recommend careful correlation with levels. 2. Disc and facet degenerative changes of the lumbar spine as described level by level above. Findings are most notable at L3-L4 and L4-L5. The disc extrusion at L3-L4 is mildly increased in size since comparison MRI. Dictated by: Dictated on workstation # [id number]
== END ==
LOC: RAD 09:05
PROVIDERS: ATTEND Student in an Organized Health Care Education/Training Program
DX: M48.061 Spinal stenosis, lumbar region without neurogenic claudication (principal); M43.17 Spondylolisthesis, lumbosacral region; M51.34 Other intervertebral disc degeneration, thoracic region; M51.37 Other intervertebral disc degeneration, lumbosacral region; M51.26 Other intervertebral disc displacement, lumbar region
CPT/HCPCS: 72148

== ENCOUNTER → 2017-11-25 | Outpatient (CLI) | payer MEDICARE ==
[~2017-11-25] VITALS: Ht 167.6 cm; Wt 93.0 kg
[~2017-11-25] MED LIST changes: +CATHETER FLUSH 10 ML SYR IV PRN; +REGADENOSON 0.4 MG/5 ML SYR (LEXISCAN) IV ONE
[2017-11-25 09:46] VITALS: BP 157/64
[2017-11-25 09:52] VITALS: BP 162/49
--- NOTE | 2017-11-25 15:43 | STRESS TEST ---
DATE OF SERVICE: 11/25/2017 LEXISCAN MYOVIEW STRESS TEST REPORT REFERRING PHYSICIAN: Dr. Santacruz. Baseline heart rate is 67. Baseline blood pressure 157/64. Baseline EKG is sinus rhythm with no ischemic changes. In summary, the patient was injected with 10.26 mCi of technetium-99 Myoview and the resting images were obtained. Then, the patient received 0.4 mg of Lexiscan followed by 29.5 mCi of technetium-99 Myoview. Throughout the test, there were no EKG changes. The resting and stress images were reviewed and compared in the short axis, horizontal long axis, and vertical long axis views. Review of the images showed breast attenuation affecting the quality of the images. There is mild decreased uptake at the anterior wall, which appeared to be improved after the attenuation correction. SSS is 2, SDS 2, TID value 1.07. On the gated images, the left ventricle appeared to be in normal size with normal contractility. Calculated ejection fraction of 75%. CONCLUSION: 1. The patient tolerated Lexiscan well. 2. Breast attenuation affecting the quality of the images with no significant ischemia or infarction on SPECT images. 3. Normal left ventricular size with normal contractility. Calculated ejection fraction of . Job ID: [id number] DocumentID: [id number] Dictated Date: 11/25/2017 11:17:34 Gis Instructor Date: 11/25/2017 15:42:45 Dictated By: BASILIA BIRD MD
== END ==
LOC: CARD 07:57
PROVIDERS: ATTEND Physician Assistant
DX: I25.10 Atherosclerotic heart disease of native coronary artery without angina pectoris (principal); I10 Essential (primary) hypertension; E78.5 Hyperlipidemia, unspecified
CPT/HCPCS: 78452; 93017

== ENCOUNTER → 2017-12-11 | Outpatient (CLI) | payer MEDICARE ==
[~2017-12-11] MED LIST changes: -CATHETER FLUSH 10 ML SYR IV PRN; -REGADENOSON 0.4 MG/5 ML SYR (LEXISCAN) IV ONE
== END ==
LOC: CARD 11:50
PROVIDERS: ATTEND Physician Assistant
DX: I25.10 Atherosclerotic heart disease of native coronary artery without angina pectoris (principal); I10 Essential (primary) hypertension; E78.5 Hyperlipidemia, unspecified; I08.1 Rheumatic disorders of both mitral and tricuspid valves
CPT/HCPCS: 93306

== ENCOUNTER 2018-02-04 20:14 | Emergency (ER) | payer MEDICARE ==
[~2018-02-04] VITALS: Ht 165.1 cm; Wt 86.6 kg
--- NOTE | 2018-02-04 20:38 | ED Abdominal Pain ---
General Stated Complaint: ABD/BACK PAIN Source of Information: Patient Exam Limitations: No Limitations History of Present Illness Date Seen by Provider: Feb 04, 2018 Time Seen by Provider: 20:33 Initial Comments Patient is an 87-year-old female who reports generalized abdominal pain that radiates to her back, frequent urination, constipation that started today while at work. 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 She thought she had a UTI and that this was causing the pain but then she had a bowel movement later in the day and she reports that she was constipated but was able to have a bowel movement in the stool was very formed. She denies nausea, vomiting, diarrhea. During triage she did have a low-grade fever 100.6. She reports that this is the only fever that she's had today. Timing/Duration: 4-6 Hours Severity/Quality: Mild Location: Generalized Abdomen Radiation: Back Activities at Onset: None Modifying Factors: Improves With Defecating Associated Symptoms: Fever/Chills, Other (frequent urination) Allergies and Home Medications Allergies Coded Allergies: Cephalosporins (Verified Allergy, Unknown, 09/05/07) Tetanus Vaccines and Toxoid (Unverified Allergy, Unknown, 01/17/16) hydrochlorothiazide (Verified Allergy, Unknown, 09/05/07) terbinafine (Verified Allergy, Unknown, 09/05/07) Home Medications Aspirin 325 Mg Tabec, 325 MG PO DAILY, (Reported) Cholecalciferol (Vitamin D3) 4,000 Unit Capsule, 4,000 UNIT PO DAILY, (Reported) Ciprofloxacin HCl 500 Mg Tablet, 500 MG PO BID Prescribed by: ALVAREZ CHAMBERS on 02/04/182231 Clopidogrel Bisulfate 75 Mg Tablet, 75 MG PO DAILY, (Reported) Glimepiride 1 Mg Tablet, 1 MG PO DAILY, (Reported) SUPPER TIME Hydrochlorothiazide 25 Mg Tablet, 25 MG PO DAILY, (Reported) Hydrocodone Bit/Acetaminophen 1 Each Tablet, 5-500 MG PO DAILY PRN, (Reported) PRN FOR PAIN Isosorbide Mononitrate 30 Mg Tab, 30 MG PO DAILY, (Reported) Lisinopril 10 Mg Tablet, 10 MG PO HS, (Reported) Metronidazole 500 Mg Tablet, 500 MG PO BID Prescribed by: ALVAREZ CHAMBERS on 02/04/182231 Nebivolol Hcl 2.5 Mg Tablet, 2.5 MG PO DAILY, (Reported) [place]-3/Dha/Epa/Fish Oil 1 Each Capsule, 1,500 MG PO BID, (Reported) Ondansetron Hcl 4 Mg Tab, 4 MG PO Q 6 HR PRN, (Reported) Prednisone 20 Mg Tab, 40 MG PO DAILY Prescribed by: ALVAREZ CHAMBERS on 09/01/16 0133 Raloxifene Hcl 60 Mg Tab, 60 MG PO DAILY, (Reported) Simvastatin 20 Mg Tablet, 20 MG PO HS, (Reported) Sitagliptin Phos/Metformin Hcl 1 Each Tablet, 5-500 MG PO DAILY, (Reported) SUPPER TIME [Bromelain] , 1,500 MG PO DAILY, (Reported) [Calcium] , 300 MG PO DAILY, (Reported) [Glucosamine Hcl] , 300 MG PO DAILY, (Reported) [green tea lakhwinder] , DAILY, (Reported) [replenex] , DAILY, (Reported) Patient Home Medication List Home Medication List Reviewed: Yes Review of Systems Constitutional: see HPI, fever; No malaise, No weakness EENTM: See HPI; No Blurred Vision, No Double Vision, No Eye Pain Respiratory: See HPI; Denies Cough, Denies SOA at Rest, Denies Wheezing Cardiovascular: See HPI; Denies Chest Pain, Denies Irregular Heart Rate, Denies Syncope Gastrointestinal: See HPI, Abdominal Pain, Constipated; Denies Diarrhea, Denies Nausea, Denies Vomiting Genitourinary: See HPI; Denies Burning, Denies Discharge, Denies Drainage Musculoskeletal: see HPI; No back pain, No gout, No joint pain Skin: see HPI; No change in color, No change in hair/nails Psychiatric/Neurological: See HPI; Denies Anxiety, Denies Depressed Endocrine: See HPI; Denies Excessive Sweating, Denies Flushing Hematologic/Lymphatic: See HPI; Denies Anemia, Denies Blood Clots All Other Systems Reviewed Negative Unless Noted: Yes Past Hycqljx-Miaexa-Tcdqur Hx Past Med/Social Hx: Reviewed Nursing Past Med/Soc Hx Patient Social History Recent Foreign Travel: No Contact w/Someone Who Travel: No Recent Hopitalizations: No Immunizations Up To Date Tetanus Booster (TDap): More than 5yrs Date of Pneumonia Vaccine: Oct 31, 2007 Date of Influenza Vaccine: Mar 31, 2012 Seasonal Allergies Seasonal Allergies: No Past Medical History Surgeries: Yes (right rotator cuff 2013) Cardiac, Coronary Stent, Gallbladder, Tonsillectomy Respiratory: No Cardiac: Yes (VARICOSE VEINS) Coronary Artery Disease, High Cholesterol, Hypertension Neurological: No Reproductive Disorders: No Sexually Transmitted Disease: No Gastrointestinal: Yes Gastroesophageal Reflux Musculoskeletal: Yes Arthritis Endocrine: Yes Diabetes, Non-Insulin dep HEENT: No Cancer: No Psychosocial: No Integumentary: No Blood Disorders: No Family Medical History Reviewed Nursing Family Hx No Pertinent Family Hx Physical Exam Vital Signs Vital Signs - First Documented 02/04/18 20:17 Temp 100.6 Pulse 82 Resp 16 B/P (MAP) 177/70 (105) Pulse Ox 98 O2 Delivery Room Air Capillary Refill : Height/Weight/BMI Height: 5', 5.00" Weight: 200lbs 0.0oz, [id number] Method:Stated ,34.0BMI General Appearance: WD/WN, no apparent distress HEENT: normal ENT inspection, TMs normal, pharynx normal Neck: non-tender, full range of motion, supple, normal inspection Respiratory: lungs clear, normal breath sounds, no respiratory distress, no accessory muscle use Cardiovascular: regular rate, rhythm, no edema, no gallop, no JVD, no murmur Gastrointestinal: normal bowel sounds, soft, no organomegaly, no pulsatile mass , distended (patient's abdomen is distended but when questioned sure if this is normal or not. The patient's abdomen is soft.), tenderness (mild tenderness palpation) Extremities: normal range of motion, non-tender, normal inspection, no pedal edema, no calf tenderness, normal capillary refill Back: normal inspection, no CVA tenderness, no vertebral tenderness Neurologic/Psychiatric: alert, normal mood/affect, oriented x 3 Skin: normal color, warm/dry Lymphatic: no adenopathy Focused Exam Lactate Level 02/04/18 21:12: Lactic Acid Level 1.21 Lactic Acid Level Laboratory Tests Test 02/04/18 21:12 Lactic Acid Level 1.21 MMOL/L (0.50-2.00) Progress/Results/Core Measures Results/Orders Lab Results Laboratory Tests Test 02/04/18 20:22 02/04/18 20:35 02/04/18 21:12 Range/Units Urine Color YELLOW Urine Clarity CLEAR Urine pH 5 5-9 Urine Specific [place] 1.020 1.016-1.022 Urine Protein 1+ H NEGATIVE Urine Glucose (UA) NEGATIVE NEGATIVE Urine Ketones NEGATIVE NEGATIVE Urine Nitrite NEGATIVE NEGATIVE Urine Bilirubin NEGATIVE NEGATIVE Urine Urobilinogen NORMAL NORMAL MG/DL Urine Leukocyte Esterase NEGATIVE NEGATIVE Urine RBC (Auto) 1+ H NEGATIVE Urine RBC 0-2 /HPF Urine WBC NONE /HPF Urine Squamous Epithelial Cells 2-5 /HPF Urine Crystals NONE /LPF Urine Bacteria NONE /HPF Urine Casts NONE /LPF Urine Mucus NEGATIVE /LPF Urine Culture Indicated NO White Blood Count 15.9 H 4.3-11.0 10^3/uL Red Blood Count 3.91 L 4.35-5.85 10^6/uL Hemoglobin 11.6 11.5-16.0 G/DL Hematocrit 36 35-52 % Mean Corpuscular Volume 91 80-99 FL Mean Corpuscular Hemoglobin 30 25-34 PG Mean Corpuscular Hemoglobin Concent 33 32-36 G/DL Red Cell Distribution Width 13.9 10.0-14.5 % Platelet Count 296 130-400 10^3/uL Mean Platelet Volume 9.7 7.4-10.4 FL Neutrophils (%) (Auto) 77 H 42-75 % Lymphocytes (%) (Auto) 14 12-44 % Monocytes (%) (Auto) 7 0-12 % Eosinophils (%) (Auto) 2 0-10 % Basophils (%) (Auto) 0 0-10 % Neutrophils # (Auto) 12.3 H 1.8-7.8 X 10^3 Lymphocytes # (Auto) 2.2 1.0-4.0 X 10^3 Monocytes # (Auto) 1.1 H 0.0-1.0 X 10^3 Eosinophils # (Auto) 0.3 0.0-0.3 10^3/uL Basophils # (Auto) 0.0 0.0-0.1 10^3/uL Neutrophils % (Manual) 71 % Lymphocytes % (Manual) 18 % Monocytes % (Manual) 2 % Eosinophils % (Manual) 2 % Basophils % (Manual) 0 % Band Neutrophils 7 % Blood Morphology Comment NORMAL Sodium Level 141 135-145 MMOL/L Potassium Level 4.8 3.6-5.0 MMOL/L Chloride Level 105 98-107 MMOL/L Carbon Dioxide Level 26 21-32 MMOL/L Anion Gap 10 5-14 MMOL/L Blood Urea Nitrogen 21 H 7-18 MG/DL Creatinine 0.88 0.60-1.30 MG/DL Estimat Glomerular Filtration Rate > 60 BUN/Creatinine Ratio 24 Glucose Level 132 H 70-105 MG/DL Calcium Level 9.2 8.5-10.1 MG/DL Total Bilirubin 0.5 0.1-1.0 MG/DL Aspartate Amino Transf (AST/SGOT) 11 5-34 U/L Alanine Aminotransferase (ALT/SGPT) 9 0-55 U/L Alkaline Phosphatase 52 40-136 U/L Total Protein 6.8 6.4-8.2 GM/DL Albumin 4.1 3.2-4.5 GM/DL Amylase Level 52 25-125 U/L Lipase 23 8-78 U/L Lactic Acid Level 1.21 0.50-2.00 MMOL/L Micro Results Microbiology 02/04/18 Blood Culture - Preliminary, Resulted No growth 02/04/18 Blood Culture - Preliminary, Resulted No growth My Orders Orders - CRIS BARBER Comprehensive Metabolic Panel (02/04/18 20:44) Lipase (02/04/18 20:44) Amylase (02/04/18 20:44) Ua Culture If Indicated (02/04/18 20:44) Saline Lock/Iv-Start (02/04/18 20:44) Cbc With Automated Diff (02/04/18 20:44) Manual Differential (02/04/18 20:35) Ct Abdomen/Pelvis W (02/04/18 21:03) Lactic Acid Analyzer (02/04/18 21:05) Blood Culture (02/04/18 21:05) Iohexol Injection (Omnipaque 350 Mg/Ml 1 (02/04/18 21:30) Ns (Ivpb) (Sodium Chloride 0.9%) (02/04/18 21:30) Metronidazole Tablet (Flagyl Tablet) (02/04/18 23:15) Metronidazole Tablet (Flagyl Tablet) (02/04/18 23:15) Ciprofloxacin Tablet (Cipro Tablet) (02/04/18 23:15) Medications Given in ED Vital Signs/I&O 02/04/18 02/04/18 02/04/18 20:17 23:26 23:26 Temp 100.6 98.9 98.9 Pulse 82 81 81 Resp 16 16 16 B/P (MAP) 177/70 (105) 166/79 (105) 166/79 Pulse Ox 98 98 98 O2 Delivery Room Air Room Air Progress Progress Note : Progress Note The patient was informed of results from the CT scan. She agrees with plans for for outpatient antibiotics and close follow-up with her primary care physician. Diagnostic Imaging Diagonstic Imaging: CT Plain Films/CT/US/NM/MRI: abdomen Comments NAME: LESLIE STEVENSON [facility] REC#: [id number] PHYSICIAN: CRIS BARBER CC: CRIS BARBER; CHILO PLUMMER MD Page 2 of 2 RADIOLOGY REPORT [place], [place] CC: CRIS BARBER; CHILO PLUMMER MD Page 1 of 2 RADIOLOGY REPORT NAME: LESLIE STEVENSON [facility] REC#: [id number] PT STATUS: DEP ER : 1932 PHYSICIAN: CRIS BARBER ADMIT DATE: 02/04/18/ER Signed Date of Exam: 02/04/18 CT ABDOMEN/PELVIS W INDICATION: Low abdominal pain and constipation, history of cholecystectomy. CT of the abdomen and pelvis obtained with IV contrast. There is no prior study for comparison. The visualized portions of the lung bases are clear. There were no pleural fluid collections. There is no free intraperitoneal air. The liver shows no focal lesion. Patient has had cholecystectomy. The spleen, adrenals, and pancreas are normal in appearance. Right kidney appears unremarkable. The left kidney shows a small cyst inferiorly but is otherwise normal. There is no retroperitoneal mass or adenopathy. There is some atherosclerotic change of the aorta without evidence of aneurysm. There is no pelvic mass or free fluid. There is moderate stool in the colon. There are diffuse diverticula in the sigmoid region. There is some fat stranding about the mid sigmoid colon compatible with diverticulitis. There is no franky abscess. IMPRESSION: Sigmoid diverticulosis with evidence of mild acute diverticulitis in the sigmoid colon. There is no associated abscess. There is no overt obstruction. There is moderate stool throughout the colon. There is a benign-appearing cyst in the left kidney. Patient has had previous cholecystectomy. Dictated by: Dictated on workstation # [id number] Dict: 02/04/18 2155 Trans: 02/05/18 1659 Interpreted by: CHILO PLUMMER MD Electronically signed by: CHILO PLUMMER MD 02/05/18 1659 Reviewed: Reviewed by Me Departure Impression Primary Impression: Diverticulitis Disposition: 01 HOME, SELF-CARE Condition: Stable/Unchanged Departure-Patient Inst. Decision time for Depature: 23:04 Referrals: EVITA SARAVIA DO (PCP/Family) Primary Care Physician Patient Instructions: Diverticulitis (DC) Add. Discharge Instructions: Take medication as directed. You may use her hydrocodone that she have a home for pain. Eat a very bland diet with soft foods and foods that do not contain seeds. Follow up with your doctor within 1 week for recheck. Return back to the emergency room for any increased pain, nausea, vomiting, abdominal swelling, or any other concerns as needed. Scripts Metronidazole (Metronidazole) 500 Mg Tablet 500 MG PO BID, #13 TAB 0 Refills Prov: ALVAREZ CHAMBERS MD 02/04/18 Ciprofloxacin HCl (Ciprofloxacin HCl) 500 Mg Tablet 500 MG PO BID, #13 TAB Prov: ALVAREZ CHAMBERS MD 02/04/18 CRIS BARBER Feb 04, 2018 20:38
[2018-02-04 20:51] LABS: BILIRUBIN,URINE NEGATIVE (NEGATIVE); CLARITY,URINE CLEAR; COLOR,URINE YELLOW; GLUCOSE, URINE (UA) NEGATIVE (NEGATIVE); KETONES,URINE NEGATIVE (NEGATIVE); LEUKOCYTE ESTERASE ,URINE NEGATIVE (NEGATIVE); NITRITE,URINE NEGATIVE (NEGATIVE); PH,URINE 5 (5-9); PROTEIN,URINE 1+ (NEGATIVE); UROBILINOGEN,URINE NORMAL (NORMAL)
[2018-02-04 20:54] LABS: BASOPHILS % (AUTO) 0 % (0-10); EOSINOPHILS # (AUTO) 0.3 10^3/uL (0.0-0.3); EOSINOPHILS % (AUTO) 2 % (0-10); HEMATOCRIT 36 % (35-52); HEMOGLOBIN 11.6 G/DL (11.5-16.0); LYMPHOCYTES # (AUTO) 2.2 X 10^3 (1.0-4.0); LYMPHOCYTES % (AUTO) 14 % (12-44); MEAN CORPUSCULAR HEMOGLOBIN 30 PG (25-34); MEAN CORPUSCULAR HGB CONC 33 G/DL (32-36); MEAN CORPUSCULAR VOLUME 91 FL (80-99); MEAN PLATELET VOLUME 9.7 FL (7.4-10.4); MONOCYTES # (AUTO) 1.1 X 10^3 (0.0-1.0); MONOCYTES % (AUTO) 7 % (0-12); NEUTROPHILS # (AUTO) 12.3 X 10^3 (1.8-7.8); NEUTROPHILS % (AUTO) 77 % (42-75); PLATELET COUNT 296 10^3/uL (130-400); RED BLOOD COUNT 3.91 10^6/uL (4.35-5.85); RED CELL DISTRIBUTION WIDTH 13.9 % (10.0-14.5); WHITE BLOOD COUNT 15.9 10^3/uL (4.3-11.0)
[2018-02-04 20:58] LABS: RBC,URINE 0-2 /HPF
[2018-02-04 21:08] LABS: ALANINE AMINOTRANSFERASE 9 U/L (0-55); ALBUMIN 4.1 GM/DL (3.2-4.5); ALKALINE PHOSPHATASE 52 U/L (40-136); AMYLASE 52 U/L (25-125); BILIRUBIN,TOTAL 0.5 MG/DL (0.1-1.0); BUN/CREATININE RATIO 24; CALCIUM 9.2 MG/DL (8.5-10.1); CARBON DIOXIDE 26 MMOL/L (21-32); CHLORIDE 105 MMOL/L (98-107); CREATININE SERUM 0.88 MG/DL (0.60-1.30); GFR ESTIMATED > 60; GLUCOSE 132 MG/DL (70-105); LIPASE 23 U/L (8-78); POTASSIUM 4.8 MMOL/L (3.6-5.0); SODIUM 141 MMOL/L (135-145); TOTAL PROTEIN 6.8 GM/DL (6.4-8.2)
[2018-02-04 21:10] LABS: BAND NEUTROPHILS 7 %; BASOPHILS % (MANUAL) 0 %; EOSINOPHILS % (MANUAL) 2 %; LYMPHOCYTES % (MANUAL) 18 %; MONOCYTES % (MANUAL) 2 %; NEUTROPHILS % (MANUAL) 71 %; RBC MORPH NORMAL
[2018-02-04] MEDS ORDERED: IOHEXOL 350 MG/ML 100 ML (OMNIPAQUE 350) VIAL IV ONE (21:30)
[2018-02-04] MEDS ORDERED: NS 250 ML (IVPB) BAG IV ONE (21:30)
--- NOTE | 2018-02-04 22:04 | Diagnostic Imaging Report ---
INDICATION: Low abdominal pain and constipation, history of cholecystectomy. CT of the abdomen and pelvis obtained with IV contrast. There is no prior study for comparison. The visualized portions of the lung bases are clear. There were no pleural fluid collections. There is no free intraperitoneal air. The liver shows no focal lesion. Patient has had cholecystectomy. The spleen, adrenals, and pancreas are normal in appearance. Right kidney appears unremarkable. The left kidney shows a small cyst inferiorly but is otherwise normal. There is no retroperitoneal mass or adenopathy. There is some atherosclerotic change of the aorta without evidence of aneurysm. There is no pelvic mass or free fluid. There is moderate stool in the colon. There are diffuse diverticula in the sigmoid region. There is some fat stranding about the mid sigmoid colon compatible with diverticulitis. There is no franky abscess. IMPRESSION: Sigmoid diverticulosis with evidence of mild acute diverticulitis in the sigmoid colon. There is no associated abscess. There is no overt obstruction. There is moderate stool throughout the colon. There is a benign-appearing cyst in the left kidney. Patient has had previous cholecystectomy. Dictated by: Dictated on workstation # [id number]
[2018-02-04] MEDS ORDERED: METR500T21 PO (22:32)
[2018-02-04] MEDS ORDERED: CIPR500T4 PO (22:32)
[2018-02-04] MEDS ORDERED: CIPROFLOXACIN 500 MG (CIPRO) TABLET PO SCH (23:15)
[2018-02-04] MEDS ORDERED: metroNIDAZOLE 500 MG (FLAGYL) TAB PO ONE ×2 (23:15)
[2018-02-04 23:26] VITALS: BP 166/79
== END 2018-02-04 23:26 | disposition home or self-care (01) ==
LOC: EDUNIT# 20:14 → ER 20:16
DX: K57.32 Diverticulitis of large intestine without perforation or abscess without bleeding (principal); I25.10 Atherosclerotic heart disease of native coronary artery without angina pectoris; E78.00 Pure hypercholesterolemia, unspecified; I10 Essential (primary) hypertension; K21.9 Gastro-esophageal reflux disease without esophagitis; E11.9 Type 2 diabetes mellitus without complications; Z88.1 Allergy status to other antibiotic agents; Z88.7 Allergy status to serum and vaccine; Z88.8 Allergy status to other drugs, medicaments and biological substances; Z79.82 Long term (current) use of aspirin; Z79.84 Long term (current) use of oral hypoglycemic drugs; Z95.5 Presence of coronary angioplasty implant and graft; Z90.89 Acquired absence of other organs
CPT/HCPCS: 36415; 74177; 80053; 81000; 82150; 83605; 83690; 85007; 85027; 87040

== ENCOUNTER 2018-03-16 19:18 | Emergency (ER) | payer MEDICARE ==
[~2018-03-16] VITALS: Ht 165.1 cm; Wt 88.5 kg
[~2018-03-16 19:18] MED LIST changes: +CIPR500T4 PO; +METR500T21 PO
--- OUTSIDE RECORDS SUMMARY | 2018-03-16 19:24 | XMS REPORT | Continuity of Care Document ---
Author Author [facility] Organization [facility] Address Unknown Phone Unavailable Allergies Active Description Code Type Severity Reaction Onset Reported/Identified Relationship to Patient Clinical Status Yes Cephalosporins [id number] Drug Allergy Unknown N/A 09/05/2007 Yes hydrochlorothiazide [id number] Drug Allergy Unknown N/A 09/05/2007 Yes terbinafine [id number] Drug Allergy Unknown N/A 09/05/2007 Yes Tetanus Vaccines Toxoid [id number] Drug Allergy Unknown N/A 01/17/2016 Yes Tetanus Vaccines and Toxoid [id number] Drug Allergy Unknown N/A 2015 Medications There is no data. 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 12/18/2012 MIMI JOHN MD Ot 327.51 PERIODIC LIMB MOVEMENT DISORDER 11/21/2013 EVITA SARAVIA DO Ot 327.23 OBSTRUCTIVE SLEEP APNEA (ADULT) (PEDIATR 11/21/2013 EVITA SARAVIA DO Ot 327.51 PERIODIC LIMB MOVEMENT DISORDER 08/05/2014 EVITA SARAVIA DO Ot 733.00 08/05/2014 EVITA SARAVIA DO Ot V76.12 10/21/2014 Ot 414.00 10/21/2014 Ot 786.50 10/21/2014 Ot 414.00 10/21/2014 Ot 786.50 07/15/2015 EVITA SARAVIA DO Ot 733.00 07/15/2015 EVITA SARAVIA DO Ot V76.12 09/07/2015 Ot V76.12 09/07/2015 Ot 840.4 09/07/2015 Ot E000.8 09/07/2015 Ot E928.9 09/07/2015 Ot 414.00 09/07/2015 Ot V72.81 09/07/2015 Ot 414.00 09/07/2015 Ot 354.0 09/07/2015 Ot 354.1 09/07/2015 Ot 726.10 09/07/2015 Ot V72.63 09/07/2015 Ot V72.81 09/07/2015 Ot V74.8 09/07/2015 Ot 722.4 09/07/2015 Ot V76.12 09/07/2015 Ot 575.8 09/07/2015 Ot 789.01 09/07/2015 Ot 397.0 09/07/2015 Ot 401.9 09/07/2015 Ot 414.00 09/07/2015 Ot 416.8 09/07/2015 Ot 424.0 09/07/2015 Ot 782.3 09/07/2015 Ot 786.50 09/07/2015 Ot V72.81 09/07/2015 Ot 401.9 09/07/2015 Ot 414.01 09/07/2015 Ot 786.50 09/07/2015 Ot V72.81 09/07/2015 Ot 575.8 09/07/2015 Ot V72.63 09/07/2015 Ot V72.81 09/07/2015 Ot V74.8 09/07/2015 EVITA SARAVIA DO Ot 959.11 09/07/2015 EVITA SARAVIA DO Ot 959.6 09/07/2015 EVITA SARAVIA DO Ot E000.8 09/07/2015 EVITA SARAVIA DO Ot E884.4 09/07/2015 EVITA SARAVIA DO Ot 414.01 09/07/2015 EVITA SARAVIA DO Ot 780.79 09/07/2015 EVITA SARAVIA DO Ot 786.09 09/07/2015 LORNE MOSS Ot 272.4 09/07/2015 LORNE MOSS Ot 401.9 09/07/2015 LORNE MOSS Ot 414.00 09/07/2015 LORNE MOSS Ot 496 09/07/2015 SARAVIA DOEVITA Ot 733.00 09/07/2015 SARAVIA DOEVITA Ot V76.12 09/07/2015 Ot 414.00 09/07/2015 Ot 786.50 09/28/2015 SARAVIA DOEVITA Ot M16.12 10/06/2015 SARAVIA DOEVITA Ot M16.12 12/03/2015 SARAVIAEVITA HICKMAN DO Ot M54.16 RADICULOPATHY, LUMBAR REGION 12/03/2015 SARAVIAEVITA HICKMAN DO Ot M54.16 RADICULOPATHY, LUMBAR REGION 12/05/2015 EVITA SARAVIA DO Ot M51.36 OTHER INTERVERTEBRAL DISC DEGENERATION, 12/06/2015 EVITA SARAVIA DO Ot M51.36 OTHER INTERVERTEBRAL DISC DEGENERATION, 12/23/2015 MARIUSZ BRYANT MD, Ot M16.12 UNILATERAL PRIMARY OSTEOARTHRITIS, LEFT 12/23/2015 MARIUSZ BRYANT MD, Ot M51.16 INTERVERTEBRAL DISC DISORDERS W RADICULO 12/23/2015 MARIUSZ BRYANT MD, Ot Z79.899 OTHER LONG-TERM (CURRENT) DRUG THERAPY 12/28/2015 EVITA SARAVIA DO Ot M51.36 OTHER INTERVERTEBRAL DISC DEGENERATION, 01/02/2016 EVITA SARAVIA DO, Ot M51.36 OTHER INTERVERTEBRAL DISC DEGENERATION, 01/06/2016 MARIUSZ BRYANT MD, Ot M16.12 UNILATERAL PRIMARY OSTEOARTHRITIS, LEFT 01/06/2016 MARIUSZ BRYANT MD, Ot M51.16 INTERVERTEBRAL DISC DISORDERS W RADICULO 01/06/2016 MARIUSZ BRYANT MD, Ot Z79.899 OTHER PUBLIC HEALTH PHYSICIAN (CURRENT) DRUG THERAPY 01/16/2016 Ot 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 01/16/2016 Ot S81.812A LACERATION WITHOUT FOREIGN BODY, LEFT LO 01/16/2016 Ot W55.03XA SCRATCHED BY CAT, INITIAL ENCOUNTER 01/16/[address] [facility] (PRIVATE 01/16/2016 Ot Y99.8 OTHER EXTERNAL CAUSE STATUS 01/16/2016 Ot Z23 ENCOUNTER FOR IMMUNIZATION 01/17/2016 Ot 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 01/17/2016 Ot S81.812A LACERATION WITHOUT FOREIGN BODY, LEFT LO 01/17/2016 Ot W55.03XA SCRATCHED BY CAT, INITIAL ENCOUNTER 01/17/[address] [facility] (PRIVATE 01/17/2016 Ot Y99.8 OTHER EXTERNAL CAUSE STATUS 01/17/2016 Ot Z23 ENCOUNTER FOR IMMUNIZATION 01/18/2016 Ot 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 01/18/2016 Ot S81.812A LACERATION WITHOUT FOREIGN BODY, LEFT LO 01/18/2016 Ot W55.03XA SCRATCHED BY CAT, INITIAL ENCOUNTER 01/18/[address] [facility] ([facility] 01/18/2016 Ot Y99.8 OTHER EXTERNAL CAUSE STATUS 01/18/2016 Ot Z23 ENCOUNTER FOR IMMUNIZATION 02/11/2016 Ot 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 02/11/2016 Ot S81.812A LACERATION WITHOUT FOREIGN BODY, LEFT LO 02/11/2016 Ot W55.03XA SCRATCHED BY CAT, INITIAL ENCOUNTER 02/11/[address] [facility] (PRIVATE 02/11/2016 Ot Y99.8 OTHER EXTERNAL CAUSE STATUS 02/11/2016 Ot Z23 ENCOUNTER FOR IMMUNIZATION 02/12/2016 Ot 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 02/12/2016 Ot S81.812A LACERATION WITHOUT FOREIGN BODY, LEFT LO 02/12/2016 Ot W55.03XA SCRATCHED BY CAT, INITIAL ENCOUNTER 02/12/[address] [facility] (PRIVATE 02/12/2016 Ot Y99.8 OTHER EXTERNAL CAUSE STATUS 02/12/2016 Ot Z23 ENCOUNTER FOR IMMUNIZATION 05/07/2016 MARIUSZ BRYANT MD Ot M51.16 INTERVERTEBRAL DISC DISORDERS W RADICULO 05/07/2016 MARIUSZ BRYANT MD Ot Z79.899 OTHER PUBLIC HEALTH PHYSICIAN (CURRENT) DRUG THERAPY 08/30/2016 BASILIA BIRD MD Ot E78.2 MIXED HYPERLIPIDEMIA 08/30/2016 BASILIA BIRD MD Ot I10 ESSENTIAL (PRIMARY) HYPERTENSION 08/30/2016 BASILIA BIRD MD Ot I25.10 ATHSCL HEART DISEASE OF [place] CORONARY 08/30/2016 BASILIA BIRD MD Ot I65.23 OCCLUSION AND STENOSIS OF [place]ATERAL [place] 08/30/2016 BASILIA BIRD MD Ot R07.9 CHEST PAIN, UNSPECIFIED 08/30/2016 BASILIA BIRD MD Ot E78.2 MIXED HYPERLIPIDEMIA 08/30/2016 BASILIA BIRD MD Ot I10 ESSENTIAL (PRIMARY) HYPERTENSION 08/30/2016 BASILIA BIRD MD Ot I25.10 ATHSCL HEART DISEASE OF [place] CORONARY 08/30/2016 BASILIA BIRD MD Ot I65.23 OCCLUSION AND STENOSIS OF [place]IL[place]AL [place] 08/30/2016 BASILIA BIRD MD Ot R07.9 CHEST PAIN, UNSPECIFIED 09/01/2016 ALVAREZ CHAMBERS MD Ot E11.9 TYPE 2 DIABETES MELLITUS WITHOUT COMPLIC 09/01/2016 ALVAREZ CHAMBERS MD Ot I10 ESSENTIAL (PRIMARY) HYPERTENSION 09/01/2016 ALVAREZ CHAMBERS MD, Ot J40 BRONCHITIS, NOT SPECIFIED ACUTE OR CH 09/01/2016 ALVAREZ CHAMBERS MD Ot R06.02 SHORTNESS OF BREATH 09/01/2016 ALVAREZ CHAMBERS MD Ot R06.9 UNSPECIFIED ABNORMALITIES OF BREATHING 09/01/2016 ALVAREZ CHAMBERS MD Ot Z79.02 PUBLIC HEALTH PHYSICIAN (CURRENT) USE OF ANTITHROMBOTI 09/01/2016 ALVAREZ CHAMBERS MD Ot Z79.84 PUBLIC HEALTH PHYSICIAN (CURRENT) USE OF ORAL HYPOGLYC 09/01/2016 ALVAREZ CHAMBERS MD, Ot Z79.899 OTHER PUBLIC HEALTH PHYSICIAN (CURRENT) DRUG THERAPY 09/01/2016 ALVAREZ CHAMBERS MD Ot Z95.5 PRESENCE OF CORONARY ANGIOPLASTY IMPLANT 09/02/2016 ALVAREZ CHAMBERS MD Ot E11.9 TYPE 2 DIABETES MELLITUS WITHOUT COMPLIC 09/02/2016 ALVAREZ CHAMBERS MD Ot I10 ESSENTIAL (PRIMARY) HYPERTENSION 09/02/2016 ALVAREZ CHAMBERS MD, Ot J40 BRONCHITIS, NOT SPECIFIED ACUTE OR CH 09/02/2016 ALVAREZ CHAMBERS MD Ot R06.02 SHORTNESS OF BREATH 09/02/2016 ALVAREZ CHAMBERS MD Ot R06.9 UNSPECIFIED ABNORMALITIES OF BREATHING 09/02/2016 ALVAREZ CHAMBERS MD Ot Z79.02 PUBLIC HEALTH PHYSICIAN (CURRENT) USE OF ANTITHROMBOTI 09/02/2016 ALVAREZ CHAMBERS MD Ot Z79.84 PUBLIC HEALTH PHYSICIAN (CURRENT) USE OF ORAL HYPOGLYC 09/02/2016 ALVAREZ CHAMBERS MD, Ot Z79.899 OTHER PUBLIC HEALTH PHYSICIAN (CURRENT) DRUG THERAPY 09/02/2016 ALVAREZ CHAMBERS MD, Ot Z95.5 PRESENCE OF CORONARY ANGIOPLASTY IMPLANT 09/04/2016 MARIUSZ BRYANT MD Ot M16.12 UNILATERAL PRIMARY OSTEOARTHRITIS, LEFT 09/04/2016 MARIUSZ BRYANT MD, Ot M51.16 INTERVERTEBRAL DISC DISORDERS W RADICULO 09/04/2016 MARIUSZ BRYANT MD Ot M70.61 TROCHANTERIC BURSITIS, RIGHT HIP 09/04/2016 MARIUSZ BRYANT MD, Ot Z79.899 OTHER LONG-TERM (CURRENT) DRUG THERAPY 09/19/2016 BASILIA BIRD MD Ot E78.2 MIXED HYPERLIPIDEMIA 09/19/2016 BASILIA BIRD MD Ot I10 ESSENTIAL (PRIMARY) HYPERTENSION 09/19/2016 BASILIA BIRD MD Ot I25.10 ATHSCL HEART DISEASE OF [place] CORONARY 09/19/2016 BASILIA BIRD MD Ot I65.23 OCCLUSION AND STENOSIS OF [place]ILATERAL [place] 09/19/2016 BASILIA BIRD MD Ot R07.9 CHEST PAIN, UNSPECIFIED 09/24/2016 MARIUSZ BRYANT MD Ot M16.12 UNILATERAL PRIMARY OSTEOARTHRITIS, LEFT 09/24/2016 MARIUSZ BRYANT MD Ot M51.16 INTERVERTEBRAL DISC DISORDERS W RADICULO 09/24/2016 MARIUSZ BRYANT MD Ot M70.61 TROCHANTERIC BURSITIS, RIGHT HIP 09/24/2016 MARIUSZ BRYANT MD, Ot Z79.899 OTHER LONG-TERM (CURRENT) DRUG THERAPY 09/27/2016 BASILIA BIRD MD Ot E78.2 MIXED HYPERLIPIDEMIA 09/27/2016 BASILIA BIRD MD Ot I10 ESSENTIAL (PRIMARY) HYPERTENSION 09/27/2016 BASILIA BIRD MD Ot I25.10 ATHSCL HEART DISEASE OF [place] CORONARY 09/27/2016 BASILIA BIRD MD Ot I65.23 OCCLUSION AND STENOSIS OF [place] 09/27/2016 BASILIA BIRD MD Ot R07.9 CHEST PAIN, UNSPECIFIED 09/27/2016 MARIUSZ BRYANT MD Ot M16.12 UNILATERAL PRIMARY OSTEOARTHRITIS, LEFT 09/27/2016 MARIUSZ BRYANT MD Ot M51.16 INTERVERTEBRAL DISC DISORDERS W RADICULO 09/27/2016 MARIUSZ BRYANT MD Ot M70.61 TROCHANTERIC BURSITIS, RIGHT HIP 09/27/2016 MARIUSZ BRYANT MD Ot Z79.899 OTHER PUBLIC HEALTH PHYSICIAN (CURRENT) DRUG THERAPY 11/02/2016 Ot 722.4 CERVICAL DISC DEGEN 11/02/2016 Ot V76.12 OTH SCREEN MAMMO-MALIGN NEOPLASM OF [place] 11/02/2016 Ot 575.8 DIS OF GALLBLADDER NEC 11/02/2016 Ot 789.01 ABDOMINAL PAIN, RIGHT UPPER QUADRANT 11/02/2016 Ot 397.0 TRICUSPID VALVE DISEASE 11/02/2016 Ot 401.9 HYPERTENSION NOS 11/02/2016 Ot 414.00 CORON ATHEROSCLER NOS TYPE VESSEL, NATIV 11/02/2016 Ot 416.8 CHR PULMON HEART DIS NEC 11/02/2016 Ot 424.0 MITRAL VALVE DISORDER 11/02/2016 Ot 782.3 EDEMA 11/02/2016 Ot 786.50 CHEST PAIN NOS 11/02/2016 Ot V72.81 EXAM-PRE- OPERATIVE CARDIOVASCULAR 11/02/2016 Ot 401.9 HYPERTENSION NOS 11/02/2016 Ot 414.01 CORONARY ATHEROSCLEROSIS OF [place] CORON 11/02/2016 Ot 786.50 CHEST PAIN NOS 11/02/2016 Ot V72.81 EXAM-PRE- OPERATIVE CARDIOVASCULAR 11/02/2016 Ot 575.8 DIS OF GALLBLADDER NEC 11/02/2016 Ot V72.63 PRE- PROCEDURAL LABORATORY EXAMINATION 11/02/2016 Ot V72.81 EXAM-PRE- OPERATIVE CARDIOVASCULAR 11/02/2016 Ot V74.8 SCREEN- BACTERIAL DIS NEC 11/02/2016 EVITA SARAVIA DO Ot 959.11 OTH INJURY OF CHEST WALL 11/02/2016 EVITA SARAVIA DO Ot 959.6 HIP THIGH INJURY NOS 11/02/2016 EVITA SARAVIA DO Ot E000.8 OTHER EXTERNAL CAUSE STATUS 11/02/2016 EVITA SARAVIA DO Ot E884.4 FALL FROM BED 11/02/2016 EVITA SARAVIA DO Ot 414.01 CORONARY ATHEROSCLEROSIS OF [place] CORON 11/02/2016 EVITA SARAVIA DO Ot 780.79 OTH MALAISE FATIGUE 11/02/2016 EVITA SARAVIA DO Ot 786.09 RESPIRATORY ABNORM NEC 11/02/2016 LORNE MOSS Ot 272.4 HYPERLIPIDEMIA NEC/NOS 11/02/2016 LORNE MOSS Ot 401.9 HYPERTENSION NOS 11/02/2016 LORNE MOSS Ot 414.00 CORON ATHEROSCLER NOS TYPE VESSEL, NATIV 11/02/2016 LORNE MOSS Ot 496 CHR AIRWAY OBSTRUCT NEC 11/02/2016 EVITA SARAVIA DO Ot 733.00 OSTEOPOROSIS NOS 11/02/2016 EVITA SARAVIA DO, Ot V76.12 OTH SCREEN MAMMO-MALIGN NEOPLASM OF [place] 11/02/2016 Ot 414.00 CORON ATHEROSCLER NOS TYPE VESSEL, NATIV 11/02/2016 Ot 786.50 CHEST PAIN NOS 11/02/2016 EVITA SARAVIA DO Ot M16.12 UNILATERAL PRIMARY OSTEOARTHRITIS, LEFT 11/02/2016 EVITA SARAVIA DO Ot M51.36 OTHER INTERVERTEBRAL DISC DEGENERATION, 11/02/2016 BASILIA BIRD MD Ot E78.2 MIXED HYPERLIPIDEMIA 11/02/2016 BASILIA BIRD MD Ot I10 ESSENTIAL (PRIMARY) HYPERTENSION 11/02/2016 BASILIA BIRD MD Ot I25.10 ATHSCL HEART DISEASE OF [place] CORONARY 11/02/2016 BASILIA BIRD MD Ot I65.23 OCCLUSION AND STENOSIS OF [place]IL[place]AL [place] 11/02/2016 BASILIA BIRD MD Ot R07.9 CHEST PAIN, UNSPECIFIED 11/02/2016 MARIUSZ BRYANT MD Ot M16.12 UNILATERAL PRIMARY OSTEOARTHRITIS, LEFT 11/02/2016 MARIUSZ BRYANT MD Ot M51.16 INTERVERTEBRAL DISC DISORDERS W RADICULO 11/02/2016 MARIUSZ BRYANT MD Ot 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.61 TROCHANTERIC BURSITIS, RIGHT HIP 11/02/2016 MARIUSZ BRYANT MD Ot Z79.899 OTHER LONG-TERM (CURRENT) DRUG THERAPY 11/02/2016 MARIUSZ BRYANT MD, Ot M51.16 INTERVERTEBRAL DISC DISORDERS W RADICULO 11/02/2016 MARIUSZ BRYANT MD Ot Z79.899 OTHER LONG-TERM (CURRENT) DRUG THERAPY 11/23/2016 MARIUSZ BRYANT MD, Ot M51.16 INTERVERTEBRAL DISC DISORDERS W RADICULO 11/23/2016 MARIUSZ BRYANT MD, Ot Z79.899 OTHER PUBLIC HEALTH PHYSICIAN (CURRENT) DRUG THERAPY 12/14/2016 MARIUSZ BRYANT MD, Ot M51.16 INTERVERTEBRAL DISC DISORDERS W RADICULO 12/14/2016 MARIUSZ BRYANT MD, Ot M53.3 SACROCOCCYGEAL DISORDERS, NOT ELSEWHERE 12/14/2016 MARIUSZ BRYANT MD Ot Z79.84 PUBLIC HEALTH PHYSICIAN (CURRENT) USE OF ORAL HYPOGLYC 02/01/2017 SARAVIACLEOIA L ROTARY CUTTER OPERATOR Ot M79.605 PAIN IN LEFT LEG 02/01/2017 SARAVIADANISALMA ROSA L ROTARY CUTTER OPERATOR Ot M79.605 PAIN IN LEFT LEG 02/22/2017 SARAVIA ALMA ROSA L ROTARY CUTTER OPERATOR Ot M79.662 PAIN IN LEFT LOWER LEG 02/22/2017 SARAVIADANISALMA ROSA L ROTARY CUTTER OPERATOR Ot R22.42 LOCALIZED SWELLING, MASS AND LUMP, LEFT 03/01/2017 SARAVIA ALMA ROSA L ROTARY CUTTER OPERATOR Ot M79.662 PAIN IN LEFT LOWER LEG 03/01/2017 SARAVIADANISALMA ROSA L ROTARY CUTTER OPERATOR Ot R22.42 LOCALIZED SWELLING, MASS AND LUMP, LEFT 08/06/2017 ALVAREZ CHAMBERS MD Ot E11.9 TYPE 2 DIABETES MELLITUS WITHOUT COMPLIC 08/06/2017 ALVAREZ CHAMBERS MD Ot E78.00 PURE HYPERCHOLESTEROLEMIA, UNSPECIFIED 08/06/2017 ALVAREZ CHAMBERS MD Ot I10 ESSENTIAL (PRIMARY) HYPERTENSION 08/06/2017 ALVAREZ CHAMBERS MD, Ot I25.10 ATHSCL HEART DISEASE OF [place] CORONARY 08/06/2017 ALVAREZ CHABMERS MD, Ot K21.9 GASTRO-ESOPHAGEAL REFLUX DISEASE WITHOUT 08/06/2017 ALVAREZ CHAMBERS MD, Ot M79.661 PAIN IN RIGHT LOWER LEG 08/06/2017 ALVAREZ CHAMBERS MD, Ot M79.89 OTHER SPECIFIED SOFT TISSUE DISORDERS 08/06/2017 [place] MD, ALVAREZ D Ot X50.0XXA OVEREXERTION FROM STRENUOUS MOVEMENT OR 08/06/2017 ALVAREZ CHAMBERS MD Ot Z79.82 LONG-TERM (CURRENT) USE OF ASPIRIN 08/06/2017 ALVAREZ CHAMBERS MD Ot Z90.89 ACQUIRED ABSENCE OF OTHER ORGANS 08/06/2017 ALVAREZ CHAMBERS MD Ot Z95.5 PRESENCE OF CORONARY ANGIOPLASTY IMPLANT 08/12/2017 ALVAREZ CHAMBERS MD Ot E11.9 TYPE 2 DIABETES MELLITUS WITHOUT COMPLIC 08/12/2017 ALVAREZ CHAMBERS MD Ot E78.00 PURE HYPERCHOLESTEROLEMIA, UNSPECIFIED 08/12/2017 ALVAREZ CHAMBERS MD Ot I10 ESSENTIAL (PRIMARY) HYPERTENSION 08/12/2017 ALVAREZ CHAMBERS MD Ot I25.10 ATHSCL HEART DISEASE OF [place] CORONARY 08/12/2017 ALVAREZ CHAMBERS MD Ot K21.9 GASTRO-ESOPHAGEAL REFLUX DISEASE WITHOUT 08/12/2017 ALVAREZ CHAMBERS MD Ot M79.661 PAIN IN RIGHT LOWER LEG 08/12/2017 ALVAREZ CHAMBERS MD Ot M79.89 OTHER SPECIFIED SOFT TISSUE DISORDERS 08/12/2017 ALVAREZ CHAMBERS MD Ot X50.0XXA OVEREXERTION FROM STRENUOUS MOVEMENT OR 08/12/2017 ALVAREZ CHAMBERS MD Ot Z79.82 PUBLIC HEALTH PHYSICIAN (CURRENT) USE OF ASPIRIN 08/12/2017 ALVAREZ CHAMBERS MD Ot Z90.89 ACQUIRED ABSENCE OF OTHER ORGANS 08/12/2017 ALVAREZ CHAMBERS MD Ot Z95.5 PRESENCE OF CORONARY ANGIOPLASTY IMPLANT 10/10/2017 Ot V76.12 OTH SCREEN MAMMO-MALIGN NEOPLASM OF [place] 10/10/2017 Ot 575.8 DIS OF [place]ALL[place] NEC 10/10/2017 Ot 789.01 ABDOMINAL PAIN, RIGHT UPPER QUADRANT 10/10/2017 Ot 397.0 TRICUSPID VALVE DISEASE 10/10/2017 Ot 401.9 HYPERTENSION NOS 10/10/2017 Ot 414.00 CORON ATHEROSCLER NOS TYPE VESSEL, NATIV 10/10/2017 Ot 416.8 CHR PULMON HEART DIS NEC 10/10/2017 Ot 424.0 MITRAL VALVE DISORDER 10/10/2017 Ot 782.3 EDEMA 10/10/2017 Ot 786.50 CHEST PAIN NOS 10/10/2017 Ot V72.81 EXAM-PRE- OPERATIVE CARDIOVASCULAR 10/10/2017 Ot 401.9 HYPERTENSION NOS 10/10/2017 Ot 414.01 CORONARY ATHEROSCLEROSIS OF [place] CORON 10/10/2017 Ot 786.50 CHEST PAIN NOS 10/10/2017 Ot V72.81 EXAM-PRE- OPERATIVE CARDIOVASCULAR 10/10/2017 Ot 575.8 DIS OF GALLBL[place]DER NEC 10/10/2017 Ot V72.63 PRE- PROCEDURAL LABORATORY EXAMINATION 10/10/2017 Ot V72.81 EXAM-PRE- OPERATIVE CARDIOVASCULAR 10/10/2017 Ot V74.8 SCREEN- BACTERIAL DIS NEC 10/10/2017 EVITA SARAVIA DO Ot 959.11 OTH INJURY OF CHEST WALL 10/10/2017 EVITA SARAVIA DO Ot 959.6 HIP THIGH INJURY NOS 10/10/2017 EVITA SARAVIA DO Ot E000.8 OTHER EXTERNAL CAUSE STATUS 10/10/2017 EVITA SARAVIA DO Ot E884.4 FALL FROM BED 10/10/2017 EVITA SARAVIA DO Ot 414.01 CORONARY ATHEROSCLEROSIS OF [place] CORON 10/10/2017 EVITA SARAVIA DO Ot 780.79 OTH MALAISE FATIGUE 10/10/2017 EVITA SARAVIA DO Ot 786.09 RESPIRATORY ABNORM NEC 10/10/2017 LORNE MOSS Ot 272.4 HYPERLIPIDEMIA NEC/NOS 10/10/2017 LORNE MOSS Ot 401.9 HYPERTENSION NOS 10/10/2017 LORNE MOSS Ot 414.00 CORON ATHEROSCLER NOS TYPE VESSEL, NATIV 10/10/2017 LONRE MOSS Ot 496 CHR AIRWAY OBSTRUCT NEC 10/10/2017 EVITA SARAVIA DO Ot 733.00 OSTEOPOROSIS NOS 10/10/2017 EVITA SARAVIA DO Ot V76.12 OTH SCREEN MAMMO-MALIGN NEOPLASM OF [place] 10/10/2017 Ot 414.00 CORON ATHEROSCLER NOS TYPE VESSEL, NATIV 10/10/2017 Ot 786.50 CHEST PAIN NOS 10/10/2017 EVITA SARAVIA DO Ot M16.12 UNILATERAL PRIMARY OSTEOARTHRITIS, LEFT 10/10/2017 EVITA SARAVIA DO Ot M51.36 OTHER INTERVERTEBRAL DISC DEGENERATION, 10/10/2017 PELON GOEL, BASILIA [place] Ot E78.2 MIXED HYPERLIPIDEMIA 10/10/2017 BASILIA BIRD MD Ot I10 ESSENTIAL (PRIMARY) HYPERTENSION 10/10/2017 BASILIA BIRD MD Ot I25.10 ATHSCL HEART DISEASE OF [place] CORONARY 10/10/2017 BASILIA BIRD MD Ot I65.23 OCCLUSION AND STENOSIS OF [place]ILATERAL [place] 10/10/2017 BASILIA BIRD MD Ot R07.9 CHEST PAIN, UNSPECIFIED 10/10/2017 MARIUSZ BRYANT MD Ot M16.12 UNILATERAL PRIMARY OSTEOARTHRITIS, LEFT 10/10/2017 AMRIUSZ BRYANT MD Ot M51.16 INTERVERTEBRAL DISC DISORDERS W RADICULO 10/10/2017 MARIUSZ BRYANT MD Ot M70.61 TROCHANTERIC BURSITIS, RIGHT HIP 10/10/2017 MARIUSZ BRYANT MD Ot Z79.899 OTHER LONG-TERM (CURRENT) DRUG THERAPY 10/10/2017 ALMA ROSA SARAVIA ROTARY CUTTER OPERATOR Ot M79.662 PAIN IN LEFT LOWER LEG 10/10/2017 ALMA ROSA SARAVIA ROTARY CUTTER OPERATOR Ot R22.42 LOCALIZED SWELLING, MASS AND LUMP, LEFT 10/14/2017 JOSE DAVID BOWERS MD H Ot 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, LUMBOSACRAL REGION 10/14/2017 JOSE DAVID BOWERS MD Ot M48.061 SPINAL STENOSIS, LUMBAR REGION WITHOUT N 10/14/2017 JOSE DAVID BOWERS MD H Ot M51.26 OTHER INTERVERTEBRAL DISC DISPLACEMENT, 10/14/2017 JOSE DAVID BOWERS MD H Ot M51.34 OTHER INTERVERTEBRAL DISC DEGENERATION, 10/14/2017 JOSE DAVID BOWERS MD H Ot M51.37 OTHER INTERVERTEBRAL DISC DEGENERATION, 10/16/2017 JOSE DAVID BOWERS MD H Ot 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, LUMBOSACRAL REGION 10/16/2017 ELISSA GOEL JOSE DAVID H Ot M48.061 SPINAL STENOSIS, LUMBAR REGION WITHOUT N 10/16/2017 ELISSA GOEL JOSE DAVID H Ot M51.26 OTHER INTERVERTEBRAL DISC DISPLACEMENT, 10/16/2017 ELISSA GOEL JOSE DAVID H Ot M51.34 OTHER INTERVERTEBRAL DISC DEGENERATION, 10/16/2017 ELISSA GOEL JOSE DAVID H Ot M51.37 OTHER INTERVERTEBRAL DISC DEGENERATION, 11/01/2017 JOSE DAVID BOWERS MD H Ot 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, LUMBOSACRAL REGION 11/01/2017 ELISSA GOEL JOSE DAVID H Ot M48.061 SPINAL STENOSIS, LUMBAR REGION WITHOUT N 11/01/2017 ELISSA GOEL, JOSE DAVID Reyna Ot M51.26 OTHER INTERVERTEBRAL DISC DISPLACEMENT, 11/01/2017 ELISSA GOEL, JOSE DAVID Reyna Ot M51.34 OTHER INTERVERTEBRAL DISC DEGENERATION, 11/01/2017 ELISSA GOEL, JOSE DAVID Reyna Ot M51.37 OTHER INTERVERTEBRAL DISC DEGENERATION, 11/25/2017 GURPREET PA, LORNE K Ot E78.5 HYPERLIPIDEMIA, UNSPECIFIED 11/25/2017 GURPREET PA, LORNE K Ot I10 ESSENTIAL (PRIMARY) HYPERTENSION 11/25/2017 GURPREET PA, LORNE K Ot I25.10 ATHSCL HEART DISEASE OF [place] CORONARY 12/12/2017 GURPREET PA, LORNE K Ot E78.5 HYPERLIPIDEMIA, UNSPECIFIED 12/12/2017 GURPREET PA, LORNE K Ot 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 12/12/2017 GURPREET PA, LORNE K Ot I10 ESSENTIAL (PRIMARY) HYPERTENSION 12/12/2017 GURPREET BREWER, LORNE K Ot I25.10 ATHSCL HEART DISEASE OF [place] CORONARY 12/17/2017 GURPREET PA, LORNE K Ot E78.5 HYPERLIPIDEMIA, UNSPECIFIED 12/17/2017 GURPREET PA, LORNE K Ot I10 ESSENTIAL (PRIMARY) HYPERTENSION 12/17/2017 CHAPARRITA-MARSHA PA, LORNE K Ot I25.10 ATHSCL HEART DISEASE OF [place] CORONARY 12/25/2017 GURPREET PA, LORNE K Ot E78.5 HYPERLIPIDEMIA, UNSPECIFIED 12/25/2017 GURPREET PA, LORNE K Ot I10 ESSENTIAL (PRIMARY) HYPERTENSION 12/25/2017 GURPREET PA, LORNE K Ot I25.10 ATHSCL HEART DISEASE OF [place] CORONARY 12/31/2017 GURPREET PA, LORNE K Ot E78.5 HYPERLIPIDEMIA, UNSPECIFIED 12/31/2017 GURPREET PA, LORNE K Ot 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 12/31/2017 GURPREET BREWER, LORNE K Ot I10 ESSENTIAL (PRIMARY) HYPERTENSION 12/31/2017 GURPREET PA, LORNE K Ot I25.10 ATHSCL HEART DISEASE OF [place] CORONARY 01/09/2018 LORNE MOSS Ot E78.5 HYPERLIPIDEMIA, UNSPECIFIED 01/09/2018 LORNE MOSS Ot 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 01/09/2018 LORNE MOSS Ot I10 ESSENTIAL (PRIMARY) HYPERTENSION 01/09/2018 LORNE MOSS Ot I25.10 ATHSCL HEART DISEASE OF [place] CORONARY 02/04/2018 ALVAREZ CHAMBERS MD, Ot E11.9 TYPE 2 DIABETES MELLITUS WITHOUT COMPLIC 02/04/2018 ALVAREZ CHAMBERS MD, Ot E78.00 PURE HYPERCHOLESTEROLEMIA, UNSPECIFIED 02/04/2018 ALVAREZ CHAMBERS MD, Ot I10 ESSENTIAL (PRIMARY) HYPERTENSION 02/04/2018 ALVAREZ CHAMBERS MD, Ot I25.10 ATHSCL HEART DISEASE OF [place] CORONARY 02/04/2018 ALVAREZ CHAMBERS MD, Ot K21.9 GASTRO-ESOPHAGEAL REFLUX DISEASE WITHOUT 02/04/2018 ALVAREZ CHAMBERS MD, Ot K57.32 DVTRCLI OF LG INT W/O PERFORATION OR ABS 02/04/2018 ALVAREZ CHAMBERS MD Ot R10.84 GENERALIZED ABDOMINAL PAIN 02/04/2018 ALVAREZ CHAMBERS MD, Ot Z79.82 LONG-TERM (CURRENT) USE OF ASPIRIN 02/04/2018 ALVAREZ CHAMBERS MD Ot Z79.84 LONG-TERM (CURRENT) USE OF ORAL HYPOGLYC 02/04/2018 ALVAREZ CHAMBERS MD Ot Z88.1 ALLERGY STATUS TO OTHER ANTIBIOTIC AGENT 02/04/2018 ALVAREZ CHAMBERS MD, Ot Z88.7 ALLERGY STATUS TO SERUM AND VACCINE STAT 02/04/2018 ALVAREZ CHAMBERS MD, Ot Z88.8 ALLERGY STATUS TO OTH DRUG/MEDS/BIOL SUB 02/04/2018 ALVAREZ CHAMBERS MD, Ot Z90.89 ACQUIRED ABSENCE OF OTHER ORGANS 02/04/2018 ALVAREZ CHAMBERS MD, Ot Z95.5 PRESENCE OF CORONARY ANGIOPLASTY IMPLANT Procedures There is no data. Results Test Result Range Complete urinalysis with reflex to culture - 02/04/18 20:22 Urine color determination YELLOW NRG Urine clarity determination CLEAR NRG Urine pH measurement by test strip 5 5-9 Specific gravity of urine by test strip 1.020 1.016- 1.022 Urine protein assay by test strip, semi-quantitative 1+ NEGATIVE Urine glucose detection by automated test strip NEGATIVE NEGATIVE Erythrocytes detection in urine sediment by light microscopy 1+ NEGATIVE Urine ketones detection by automated test strip NEGATIVE NEGATIVE Urine nitrite detection by test strip NEGATIVE NEGATIVE Urine total bilirubin detection by test strip NEGATIVE NEGATIVE Urine urobilinogen measurement by automated test strip (mass/volume) NORMAL NORMAL Urine leukocyte esterase detection by dipstick NEGATIVE NEGATIVE Automated urine sediment erythrocyte count by microscopy (number/high power field) [HPF] NRG Automated urine sediment leukocyte count by microscopy (number/high power field ) NONE NRG Bacteria detection in urine sediment by light microscopy NONE NRG Squamous epithelial cells detection in urine sediment by light microscopy 2-5 NRG Crystals detection in urine sediment by light microscopy NONE NRG Casts detection in urine sediment by light microscopy NONE NRG Mucus detection in urine sediment by light microscopy NEGATIVE NRG Complete urinalysis with reflex to culture NO NRG Complete blood count (CBC) with automated white blood cell (WBC) differential - 02/04/18 20:35 Blood leukocytes automated count (number/volume) 15.9 10*3/uL 4.3-11.0 Blood erythrocytes automated count (number/volume) 3.91 10*6/uL 4.35-5.85 Venous blood hemoglobin measurement (mass/volume) 11.6 g/dL 11.5-16.0 Blood hematocrit (volume fraction) 36 % 35-52 Automated erythrocyte mean corpuscular volume 91 [foz_us] 80-99 Automated erythrocyte mean corpuscular hemoglobin (mass per erythrocyte) 30 pg 25-34 Automated erythrocyte mean corpuscular hemoglobin concentration measurement ( mass/volume) 33 g/dL 32-36 Automated erythrocyte distribution width ratio 13.9 % 10.0-14.5 Automated blood platelet count (count/volume) 296 10*3/uL 130-400 Automated blood platelet mean volume measurement 9.7 [foz_us] 7.4-10.4 Automated blood neutrophils/100 leukocytes 77 % 42-75 Automated blood lymphocytes/100 leukocytes 14 % 12-44 Blood monocytes/100 leukocytes 7 % 0-12 Automated blood eosinophils/100 leukocytes 2 % 0-10 Automated blood basophils/100 leukocytes 0 % 0-10 Blood neutrophils automated count (number/volume) 12.3 10*3 1.8-7.8 Blood lymphocytes automated count (number/volume) 2.2 10*3 1.0-4.0 Blood monocytes automated count (number/volume) 1.1 10*3 0.0-1.0 Automated eosinophil count 0.3 10*3/uL 0.0-0.3 Automated blood basophil count (count/volume) 0.0 10*3/uL 0.0-0.1 Comprehensive metabolic panel - 02/04/18 20:35 Serum or plasma sodium measurement (moles/volume) 141 mmol/L 135-145 Serum or plasma potassium measurement (moles/volume) 4.8 mmol/L 3.6-5.0 Serum or plasma chloride measurement (moles/volume) 105 mmol/L 98-107 Carbon dioxide 26 mmol/L 21-32 Serum or plasma anion gap determination (moles/volume) 10 mmol/L 5-14 Serum or plasma urea nitrogen measurement (mass/volume) 21 mg/dL 7-18 Serum or plasma creatinine measurement (mass/volume) 0.88 mg/dL 0.60-1.30 Serum or plasma urea nitrogen/creatinine mass ratio 24 NRG Serum or plasma creatinine measurement with calculation of estimated glomerular filtration rate > NRG Serum or plasma glucose measurement (mass/volume) 132 mg/dL 70-105 Serum or plasma calcium measurement (mass/volume) 9.2 mg/dL 8.5-10.1 Serum or plasma total bilirubin measurement (mass/volume) 0.5 mg/dL 0.1-1.0 Serum or plasma alkaline phosphatase measurement (enzymatic activity/volume) 52 U/L 40-136 Serum or plasma aspartate aminotransferase measurement (enzymatic activity/ volume) 11 U/L 5-34 Serum or plasma alanine aminotransferase measurement (enzymatic activity/volume ) 9 U/L 0-55 Serum or plasma protein measurement (mass/volume) 6.8 g/dL 6.4-8.2 Serum or plasma albumin measurement (mass/volume) 4.1 g/dL 3.2-4.5 Serum or plasma amylase measurement (enzymatic activity/volume) - 02/04/18 20: 35 Serum or plasma amylase measurement (enzymatic activity/volume) 52 U /L 25-125 Lipase - 02/04/18 20:35 Lipase 23 U/L 8-78 Blood manual differential performed detection - 02/04/18 20:35 Blood monocytes/100 leukocytes 2 % NRG Manual blood segmented neutrophils/100 leukocytes 71 % NRG Blood band neutrophils/100 leukocytes 7 % NRG Manual blood lymphocytes/100 leukocytes 18 % NRG Manual eosinophils/100 leukocytes in nose 2 % NRG Manual blood basophils/100 leukocytes 0 % NRG Blood erythrocyte morphology finding identification NORMAL NRG Blood lactic acid measurement (moles/volume) - 02/04/18 21:12 Blood lactic acid measurement (moles/volume) 1.21 mmol/L 0.50-2.00 Bacterial blood culture - 02/04/18 21:12 Bacterial blood culture NG NRG Bacterial blood culture - 02/04/18 21:28 Bacterial blood culture NG NRG Encounters ACCT No. Visit Date/Time Discharge Status Pt. Type Provider Facility Loc./Unit Complaint [id number] 02/04/2018 20:16:00 02/04/2018 23:26:00 DIS Emergency ALVAREZ CHAMBERS MD [facility] ER ABD/BACK PAIN [id number] 12/11/2017 11:50:00 12/11/2017 23:59:59 CLS Outpatient LORNE MOSS [facility] CARD I25.10 CAD [id number] 11/25/2017 07:57:00 11/25/2017 23:59:59 CLS Outpatient LORNE MOSS [facility] CARD CAD [id number] 10/22/2017 07:27:00 10/22/2017 23:59:59 CLS Preadmit LORNE MOSS [facility] CARD CAD [id number] 10/12/2017 09:05:00 10/12/2017 23:59:59 CLS Outpatient JOSE DAVID BOWERS MD [facility] RAD LUMBAR SPINAL STENOSIS [id number] 08/06/2017 11:41:00 08/06/2017 15:01:00 DIS Emergency ALVAREZ CHAMBERS MD [facility] ER RT CALF PAIN [id number] 02/01/2017 13:50:00 02/01/2017 23:59:59 CLS Outpatient ALMA ROSA SARAVIA [facility] RAD L KNEE PAIN, CALF PAIN [id number] 12/14/2016 08:33:00 12/14/2016 09:33:00 DIS Outpatient MARIUSZ BRYANT MD [facility] CARD DISC DISORDER, 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, M53.3 [id number] 11/02/2016 09:35:00 11/02/2016 11:17:00 DIS Outpatient MARIUSZ BRYANT MD [facility] CARD DISC DISORDER [id number] 08/31/2016 23:41:00 09/01/2016 01:55:00 DIS Emergency REYES GOEL, ALVAREZ Velarde [facility] ER SOB,SORENESS OF CHEST FROM COUGHING [id number] 08/29/2016 08:30:00 08/29/2016 23:59:59 CLS Outpatient BASILIA BIRD MD [facility] CARD CAD,CHEST PAIN, HTN [id number] 08/27/2016 12:47:00 08/27/2016 23:59:59 CLS Outpatient MARIUSZ BRYANT MD [facility] CARD DISC DISORDER [id number] 05/07/2016 12:14:00 05/07/2016 13:10:00 DIS Outpatient MARIUSZ BRYANT MD [facility] CARD DISC DISORDER W/ RADICULOPATHY [id number] 12/23/2015 08:16:00 12/23/2015 11:02:00 DIS Outpatient MARIUSZ BRYANT MD [facility] CARD DISC DISORDER [id number] 12/03/2015 12:46:00 12/03/2015 23:59:59 CLS Outpatient EVITA SARAVIA DO [facility] RAD LOWER BACK PAIN [id number] 09/07/2015 10:30:00 09/07/2015 23:59:59 CLS Outpatient EVITA SARAVIA DO [facility] RAD LEFT HIP PAIN [id number] 07/15/2014 08:05:00 07/15/2014 23:59:59 CLS Outpatient EVITA SARAVIA DO [facility] RAD ROUTINE,733.00 [id number] 12/24/2013 07:48:00 12/24/2013 23:59:59 CLS Outpatient LORNE MOSS [facility] CARD CAD,COPD,HTN ,HLP [id number] 11/20/2013 20:51:00 11/21/2013 06:30:00 DIS Outpatient EVITA SARAVIA DO [facility] SLEEP EUGENE,HTN [id number] 10/08/2013 06:47:00 10/08/2013 23:59:59 CLS Outpatient EVITA SARAVIA DO [facility] RAD CAD,DYSPNEA,FATIGUE [id number] 03/16/2013 12:28:00 03/16/2013 23:59:59 CLS Outpatient EVITA SARAVIA DO [facility] RAD TRAUMA [id number] 12/17/2012 21:06:00 12/18/2012 06:20:00 DIS Outpatient MIMI JOHN MD [facility] SLEEP EUGENE [id number] 11/28/2012 19:57:00 11/29/2012 06:30:00 DIS Outpatient ZAYDA JUAREZ [facility] SLEEP EUGENE [id number] 01/16/2016 22:52:00 Document Registration [id number] 09/07/2015 10:29:00 Document Registration [id number] 09/24/2014 06:39:00 Document Registration [id number] 10/30/2012 06:04:00 Document Registration [id number] 10/21/2012 08:01:00 Document Registration [id number] 09/09/2012 11:56:00 Document Registration [id number] 09/04/2012 13:38:00 Document Registration [id number] 07/18/2012 07:43:00 Document Registration [id number] 07/07/2012 08:36:00 Document Registration [id number] 11/05/2011 08:43:00 Document Registration [id number] 12/13/2010 05:46:00 Document Registration [id number] 12/11/2010 12:44:00 Document Registration [id number] 12/06/2010 06:47:00 Document Registration [id number] 12/05/2010 09:50:00 Document Registration [id number] 09/06/2010 11:56:00 Document Registration [id number] 08/14/2010 09:08:00 Document Registration [id number] 07/15/2014 08:06:01 ACT Document Registration
[2018-03-16] MEDS ORDERED: ASPIRIN 81 MG CHEW (CHILDREN'S ASA) PO ONE (19:30)
[2018-03-16] MEDS ORDERED: NITROGLYCERIN 0.4 MG SL TABS BTL 25'S SL ONE (19:31)
[2018-03-16 19:37] LABS: BASOPHILS % (AUTO) 0 % (0-10); EOSINOPHILS # (AUTO) 0.2 10^3/uL (0.0-0.3); EOSINOPHILS % (AUTO) 2 % (0-10); HEMATOCRIT 34 % (35-52); HEMOGLOBIN 11.1 G/DL (11.5-16.0); LYMPHOCYTES % (AUTO) 30 % (12-44); MEAN CORPUSCULAR HEMOGLOBIN 30 PG (25-34); MEAN CORPUSCULAR HGB CONC 33 G/DL (32-36); MEAN CORPUSCULAR VOLUME 91 FL (80-99); MONOCYTES # (AUTO) 0.6 X 10^3 (0.0-1.0); MONOCYTES % (AUTO) 7 % (0-12); NEUTROPHILS % (AUTO) 61 % (42-75); PLATELET COUNT 315 10^3/uL (130-400); RED BLOOD COUNT 3.74 10^6/uL (4.35-5.85); RED CELL DISTRIBUTION WIDTH 14.4 % (10.0-14.5); WHITE BLOOD COUNT 9.8 10^3/uL (4.3-11.0)
[2018-03-16] MEDS: NITROGLYCERIN 0.4 MG SL TABS BTL 25'S SL PRN ×2 (19:37→19:48)
[2018-03-16 19:48] LABS: PROTHROMBIN TIME PATIENT 13.4 SEC (12.2-14.7)
[2018-03-16 19:57] LABS: ALANINE AMINOTRANSFERASE 14 U/L (0-55); ALBUMIN 4.1 GM/DL (3.2-4.5); ALKALINE PHOSPHATASE 48 U/L (40-136); AMYLASE 37 U/L (25-125); BILIRUBIN,TOTAL 0.3 MG/DL (0.1-1.0); BUN/CREATININE RATIO 18; CALCIUM 8.9 MG/DL (8.5-10.1); CARBON DIOXIDE 25 MMOL/L (21-32); CREATININE SERUM 0.79 MG/DL (0.60-1.30); GFR ESTIMATED > 60; GLUCOSE 90 MG/DL (70-105); MAGNESIUM 2.1 MG/DL (1.8-2.4); TOTAL PROTEIN 6.7 GM/DL (6.4-8.2)
--- NOTE | 2018-03-16 19:57 | Diagnostic Imaging Report ---
INDICATION: Chest pain. COMPARISON: Prior examination from 09/01/2016. EXAMINATION: Single view of the chest was obtained. FINDINGS: There is cardiomegaly. There is some central pulmonary venous congestion. There is no pleural effusion, pneumothorax or pneumonia. Mediastinum is unremarkable. IMPRESSION: Cardiomegaly and some central pulmonary venous congestion. Dictated by: Dictated on workstation # [id number]
[2018-03-16 20:04] LABS: MYOGLOBIN SERUM 48.9 NG/ML (10.0-92.0)
[2018-03-16 20:13] LABS: SODIUM 140 MMOL/L (135-145)
[2018-03-16 20:14] LABS: CHLORIDE 106 MMOL/L (98-107)
[2018-03-16 20:18] LABS: LIPASE 23 U/L (8-78)
--- NOTE | 2018-03-16 20:40 | ED Chest Pain ---
General Chief Complaint: Chest Pain Stated Complaint: CP Nursing Triage Note: Pt reports chest heaviness and generally not feeling well since Saturday (03/14). Pt saw Dr Santacruz at that time and was instructed to come to ED if symptoms got worse. Pt states she is not feeling any better. Pt has hx coronary stents. Nursing Sepsis Screen: No Definite Risk Source: patient, old records Exam Limitations: no limitations History of Present Illness Date Seen by Provider: Mar 16, 2018 Time Seen by Provider: 19:19 Initial Comments PT ARRIVES VIA POV FROM HOME C/O CHEST PAIN OFF AND ON SINCE Saturday03/14/18 RATES PAIN 2/10 NOW--PRESSURE IN CHEST PAIN OCCASIONALLY RADIATES TO LEFT SHOULDER BLADE C/O SWEATS OFF AND ON SINCE BEFORE SATURDAY--STATES IS RANDOM AND NOT ALWAYS ASSOCIATED WITH CHEST PAIN + ORTHOPNEA-SLIGHT NO NAUSEA/VOMITING HAS OCCASIONAL SWELLING IN LEGS/ FEET, BUT NOT NOW, QUIT TAKING LASIX NO PALPITATIONS NO DIZZINESS STATES SHE HAS HAD DIARRHEA SINCE SATURDAY--4-5 EPISODES TODAY HAS HAD LOWER ABDOMINAL PAIN/CRAMPING WITH DIARRHEA NO NAUSEA/VOMITING NO FEVER NO URINARY SYMPTOMS SAW DR. SANTACRUZ ON SATURDAY FOR THIS PROBLEM WAS ADVISED TO GO TO ER AT THAT TIME, BUT PT REFUSED. PT HAS AN APPOINTMENT WITH DR. BIRD TOMORROW MORNING FOR THIS PROBLEM PT STATES PAIN IS NO DIFFERENT TODAY HAS TAKEN NTG X 1 AT 1730 AND PAIN WENT AWAY. HAS NOT TAKEN NTG AT ANY OTHER TIME. PT HAS HAD STENTS X 3--WAS OVER 10 YEARS AGO, PER PT. PT HAS NORMAL STRESS TEST WITH EF 75% 11/25/17 PCP: DR. SANTACRUZ WAITER/WAITRESS COUNTER: DR. BIRD Allergies and Home Medications Allergies Coded Allergies: Cephalosporins (Verified Allergy, Unknown, 09/05/07) Tetanus Vaccines and Toxoid (Unverified Allergy, Unknown, 01/17/16) hydrochlorothiazide (Verified Allergy, Unknown, 09/05/07) terbinafine (Verified Allergy, Unknown, 09/05/07) Home Medications Aspirin 325 Mg Tabec, 325 MG PO DAILY, (Reported) Cholecalciferol (Vitamin D3) 4,000 Unit Capsule, 4,000 UNIT PO DAILY, (Reported) Ciprofloxacin HCl 500 Mg Tablet, 500 MG PO BID Prescribed by: ALVAREZ CHAMBERS on 02/04/18 0530 Clopidogrel Bisulfate 75 Mg Tablet, 75 MG PO DAILY, (Reported) Glimepiride 1 Mg Tablet, 1 MG PO DAILY, (Reported) SUPPER TIME Hydrochlorothiazide 25 Mg Tablet, 25 MG PO DAILY, (Reported) Hydrocodone Bit/Acetaminophen 1 Each Tablet, 5-500 MG PO DAILY PRN, (Reported) PRN FOR PAIN Isosorbide Mononitrate 30 Mg Tab, 30 MG PO DAILY, (Reported) Lisinopril 10 Mg Tablet, 10 MG PO HS, (Reported) Metronidazole 500 Mg Tablet, 500 MG PO BID Prescribed by: ALVAREZ CHAMBERS on 02/04/18 2232 Nebivolol Hcl 2.5 Mg Tablet, 2.5 MG PO DAILY, (Reported) [place]-3/Dha/Epa/Fish Oil 1 Each Capsule, 1,500 MG PO BID, (Reported) Ondansetron Hcl 4 Mg Tab, 4 MG PO Q 6 HR PRN, (Reported) Prednisone 20 Mg Tab, 40 MG PO DAILY Prescribed by: ALVAREZ CHAMBERS on 09/01/16 0133 Raloxifene Hcl 60 Mg Tab, 60 MG PO DAILY, (Reported) Simvastatin 20 Mg Tablet, 20 MG PO HS, (Reported) Sitagliptin Phos/Metformin Hcl 1 Each Tablet, 5-500 MG PO DAILY, (Reported) SUPPER TIME [Bromelain] , 1,500 MG PO DAILY, (Reported) [Calcium] , 300 MG PO DAILY, (Reported) [Glucosamine Hcl] , 300 MG PO DAILY, (Reported) [green tea lakhwinder] , DAILY, (Reported) [replenex] , DAILY, (Reported) Patient Home Medication List Home Medication List Reviewed: Yes Review of Systems Constitutional: see HPI, diaphoresis; No dizziness EENTM: No Symptoms Reported Respiratory: See HPI, Orthopnea; Denies SOA With Exertion Cardiovascular: See HPI, Chest Pain; Denies Edema, Denies Irregular Heart Rate , Denies Lightheadedness, Denies Palpitations, Denies Syncope Gastrointestinal: See HPI, Abdominal Pain, Diarrhea; Denies Nausea, Denies Vomiting Genitourinary: No Symptoms Reported Musculoskeletal: see HPI Skin: no symptoms reported Psychiatric/Neurological: No Symptoms Reported Endocrine: No Symptoms Reported, Other (ACCUCHECK 119 THIS AM) Hematologic/Lymphatic: No Symptoms Reported Past Cdwvxrl-Jrdflf-Zcenod Hx Patient Social History Alcohol Use: Denies Use Recreational Drug Use: No Smoking Status: Never a Smoker 2nd Hand Smoke Exposure: No Recent Foreign Travel: No Contact w/Someone Who Travel: No Recent Infectious Disease Expo: No Recent Hopitalizations: No Immunizations Up To Date Tetanus Booster (TDap): More than 5yrs Date of Pneumonia Vaccine: Oct 31, 2007 Date of Influenza Vaccine: Mar 31, 2012 Seasonal Allergies Seasonal Allergies: No Past Medical History Surgeries: Yes (right rotator cuff 2013, coronary stents x3) Cardiac, Coronary Stent, Gallbladder, Orthopedic, Tonsillectomy Respiratory: No Cardiac: Yes (varicose veins) Chronic Edema/Swelling, Coronary Artery Disease, High Cholesterol, Hypertension Neurological: No Reproductive Disorders: No Sexually Transmitted Disease: No Genitourinary: Yes (stress incontinence) Gastrointestinal: Yes Gastroesophageal Reflux Musculoskeletal: Yes Arthritis Endocrine: Yes Diabetes, Non-Insulin dep HEENT: Yes Cataract Cancer: No Psychosocial: No Integumentary: No Blood Disorders: No Family Medical History No Pertinent Family Hx Physical Exam Vital Signs Vital Signs - First Documented 03/16/18 19:22 Temp 98.5 Pulse 69 Resp 20 B/P (MAP) 159/74 (102) Pulse Ox 96 O2 Delivery Room Air Capillary Refill : Less Than 3 Seconds Height, Weight, BMI Height: 5'5.00" Weight: 195lbs. 0.0oz. 88.237440ft; 34.0 BMI Method:Stated General Appearance: No Apparent Distress, WD/WN HEENT: PERRL/EOMI Neck: Full Range of Motion, Normal Inspection, Non Tender, Supple; No Carotid Bruit, No JVD Respiratory: Chest Non Tender, Normal Breath Sounds, No Accessory Muscle Use, No Respiratory Distress Cardiovascular: Regular Rate, Rhythm, No JVD, No Murmur, Normal Peripheral Pulses Gastrointestinal: Normal Bowel Sounds, No Organomegaly, No Pulsatile Mass, Non Tender, Soft Extremity: Normal Capillary Refill, Normal Range of Motion, Non Tender, No Calf Tenderness, Pedal Edema (TRACE BILATERALLY) Neurologic/Psychiatric: Alert, Oriented x3, No Motor/Sensory Deficits, Normal Mood/Affect, health promotion coordinator II-XII Norm as Tested Skin: Normal Color, Warm/Dry Progress/Results/Core Measures Results/Orders Lab Results Laboratory Tests Test 03/16/18 11:40 03/16/18 19:28 Range/Units Troponin I < 0.30 < 0.30 <0.30 NG/ML White Blood Count 9.8 4.3-11.0 10^3/uL Red Blood Count 3.74 L 4.35-5.85 10^6/uL Hemoglobin 11.1 L 11.5-16.0 G/DL Hematocrit 34 L 35-52 % Mean Corpuscular Volume 91 80-99 FL Mean Corpuscular Hemoglobin 30 25-34 PG Mean Corpuscular Hemoglobin Concent 33 32-36 G/DL Red Cell Distribution Width 14.4 10.0-14.5 % Platelet Count 315 130-400 10^3/uL Mean Platelet Volume 9.0 7.4-10.4 FL Neutrophils (%) (Auto) 61 42-75 % Lymphocytes (%) (Auto) 30 12-44 % Monocytes (%) (Auto) 7 0-12 % Eosinophils (%) (Auto) 2 0-10 % Basophils (%) (Auto) 0 0-10 % Neutrophils # (Auto) 6.0 1.8-7.8 X 10^3 Lymphocytes # (Auto) 3.0 1.0-4.0 X 10^3 Monocytes # (Auto) 0.6 0.0-1.0 X 10^3 Eosinophils # (Auto) 0.2 0.0-0.3 10^3/uL Basophils # (Auto) 0.0 0.0-0.1 10^3/uL Prothrombin Time 13.4 12.2-14.7 SEC INR Comment 1.0 0.8-1.4 Activated Partial Thromboplast Time 26 24-35 SEC Sodium Level 140 135-145 MMOL/L Potassium Level 4.0 3.6-5.0 MMOL/L Chloride Level 106 98-107 MMOL/L Carbon Dioxide Level 25 21-32 MMOL/L Anion Gap 9 5-14 MMOL/L Blood Urea Nitrogen 14 7-18 MG/DL Creatinine 0.79 0.60-1.30 MG/DL Estimat Glomerular Filtration Rate > 60 BUN/Creatinine Ratio 18 Glucose Level 90 70-105 MG/DL Calcium Level 8.9 8.5-10.1 MG/DL Corrected Calcium 8.8 8.5-10.1 MG/DL Magnesium Level 2.1 1.8-2.4 MG/DL Total Bilirubin 0.3 0.1-1.0 MG/DL Aspartate Amino Transf (AST/SGOT) 11 5-34 U/L Alanine Aminotransferase (ALT/SGPT) 14 0-55 U/L Alkaline Phosphatase 48 40-136 U/L Myoglobin 48.9 10.0-92.0 NG/ML B-Type Natriuretic Peptide 116.1 H <100.0 PG/ML Total Protein 6.7 6.4-8.2 GM/DL Albumin 4.1 3.2-4.5 GM/DL Amylase Level 37 25-125 U/L Lipase 23 8-78 U/L My Orders Orders - TEJAL BARTLETT DO Cbc With Automated Diff (03/16/18) Magnesium (03/16/18) Chest 1 View, Ap/Pa Only (03/16/18) Ekg Tracing (03/16/18) Cardiac Profile 1 (03/16/18) Comprehensive Metabolic Panel (03/16/18) Myoglobin Serum (03/16/18) Protime With Inr (03/16/18) Partial Thromboplastin Time (03/16/18) O2 (03/16/18) Monitor-Rhythm Ecg Trace Only (03/16/18) Aspirin Chewable Tablet (Baby Aspirin Ch (03/16/18:30) Saline Lock/Iv-Start (03/16/18) Lipase (03/16/18:) Amylase (03/16/18:) BNP (03/16/18:) Nitroglycerin 0.4 Mg Btl 25's (Nitrostat (03/16/18 19:45) Nitroglycerin 0.4 Mg Btl 25's (Nitrostat (03/16/18 19:31) Troponin I (03/16/18 23:24) Medications Given in ED Current Medications Medications Dose Ordered Sig/Trinh Route Start Time Stop Time Status Last Admin Dose Admin Aspirin 324 mg ONCE ONCE PO 03/16/18 19:30 03/16/18 19:31 DC 03/16/18 19:35 324 MG Nitroglycerin 0.4 mg UD PRN SL 03/16/18 19:45 03/17/18 00:46 DC 03/16/18 19:48 0.4 MG Vital Signs/I&O 03/16/18 03/16/1818 19:22 19:22 00:46 Temp 98.5 98.5 Pulse 69 69 Resp 20 20 B/P (MAP) 159/74 (102) 159/73 (102) Pulse Ox 96 98 O2 Delivery Room Air Room Air Room Air Blood Pressure Mean: 102 Progress Progress Note : Progress Note PAIN-FREE WITH NTG X 1 THIS FACILITY IS CURRENTLY ON DIVERSION PT REFUSES TO BE TRANSFERRED TO ANOTHER HOSPITAL PT WANTING TO GO HOME AND FOLLOW UP WITH DR. BIRD 2019--DISCUSSED WITH DR. BIRD, HE IS AGREEABLE TO DOING REPEAT TROPONIN AND IF NEGATIVE, AND PT HAS NO OTHER SYMPTOMS, SHE MAY GO HOME AND HE WILL SEE IN OFFICE TOMORROW SCHEDULED PT HAD NO FURTHER CHEST PAIN OR ANY SYMPTOMS NO DIARRHEA DURING ER STAY EITHER REPEAT TROPONIN NEGATIVE PT ANXIOUS TO GO HOME Initial ECG Impression Date: Mar 16, 2018 Initial ECG Impression Time: 19:24 Initial ECG Rate: 68 Initial ECG Rhythm: Normal Sinus Diagnostic Imaging Comments CXR--CARDIOMEGALY, MILD CENTRAL VENOUS CONGESTION. PER RADIOLOGIST REPORT @ 2001 Reviewed: Reviewed by Me Departure Impression Primary Impression: Chest pain Disposition: 01 HOME, SELF-CARE Condition: Improved Departure-Patient Inst. Referrals: BASILIA BIRD MD, WILLIAM J DO (PCP/Family) Primary Care Physician Patient Instructions: Chest Pain (DC), Angina (DC) Add. Discharge Instructions: TAKE NITROGLYCERIN EVERY 5 MINUTES X 3 NEEDED FOR CHEST PAIN RETURN TO ER IF NO RELIEF AFTER 3RD NITROGLYCERIN KEEP YOUR APPOINTMENT WITH DR. BIRD TOMORROW SCHEDULED All discharge instructions reviewed with patient and/or family. Voiced understanding. TEJAL BARTLETT DO Mar 16, 2018 20:39
[2018-03-17 00:46] VITALS: BP 159/73
== END 2018-03-17 00:46 | disposition home or self-care (01) ==
LOC: EDUNIT# 19:18 → ER 19:19
DX: R07.89 Other chest pain (principal); I25.10 Atherosclerotic heart disease of native coronary artery without angina pectoris; E78.00 Pure hypercholesterolemia, unspecified; I10 Essential (primary) hypertension; K21.9 Gastro-esophageal reflux disease without esophagitis; E11.9 Type 2 diabetes mellitus without complications; Z87.448 Personal history of other diseases of urinary system; Z95.5 Presence of coronary angioplasty implant and graft; Z88.1 Allergy status to other antibiotic agents; Z88.7 Allergy status to serum and vaccine; Z88.8 Allergy status to other drugs, medicaments and biological substances; Z79.82 Long term (current) use of aspirin; Z79.02 Long term (current) use of antithrombotics/antiplatelets; Z79.84 Long term (current) use of oral hypoglycemic drugs; Z79.52 Long term (current) use of systemic steroids; Z90.89 Acquired absence of other organs
CPT/HCPCS: 36415; 71045; 80053; 82150; 83690; 83735; 83874; 83880; 84484; 85025; 85610; 85730; 93005; 93041

== ENCOUNTER → 2018-10-08 | Outpatient (CLI) | payer MEDICARE ==
[~2018-10-08] MED LIST changes: +METR-145 PO; -METR500T21 PO
== END ==
LOC: CARD 14:06
PROVIDERS: ATTEND Internal Medicine Cardiovascular Disease
DX: I25.10 Atherosclerotic heart disease of native coronary artery without angina pectoris (principal); R07.9 Chest pain, unspecified; I10 Essential (primary) hypertension; E78.5 Hyperlipidemia, unspecified
CPT/HCPCS: 93306

== ENCOUNTER → 2020-12-02 | Outpatient (CLI) | payer MEDICARE ==
[~2020-12-02] VITALS: Ht 165 cm; Wt 95.0 kg
[~2020-12-02] MED LIST changes: +CATHETER FLUSH 10 ML SYR IV PRN; -CIPR500T4 PO; +CIPR500T5 PO; +REGADENOSON 0.4 MG/5 ML SYR (LEXISCAN) IV ONE
[2020-12-02 07:57] VITALS: BP 119/69
--- NOTE | 2020-12-02 09:13 | Cardiology Stress Test Report ---
Stress Test Report Date of Procedure/Referring: Date of Procedure: December 02, 2020 PCP Evita Santacruz DO Admitting Physician Evita Santacruz DO Indications: CAD Baseline Vital Signs Vital Signs Date Time Temp Pulse Resp B/P (MAP) Pulse Ox O2 Delivery O2 Flow Rate FiO2 12/02/20 07:57 63 119/69 (86) 98 Summary: Patient receive a resting and stress dose of Myoview, images were acquired and reviewed in the short axis view, horizontal long axis view and vertical long axis view. TID: 1.03 SSS: 4 SDS: 4 EF: 77 1. Extracardiac attenuation with no ischemia or infarction on SPECT images 2. Normal left ventricular size, EF 77% Copy Copies To 1: EVITA SANTACRUZ BASHAR J MD December 02, 2020 09:13
== END ==
LOC: CARD 06:48
PROVIDERS: ATTEND Internal Medicine
DX: I25.10 Atherosclerotic heart disease of native coronary artery without angina pectoris (principal)
CPT/HCPCS: 78452; 93017; A9502

== ENCOUNTER → 2020-12-05 | Outpatient (CLI) | payer MEDICARE ==
[~2020-12-05] MED LIST changes: -CATHETER FLUSH 10 ML SYR IV PRN; -REGADENOSON 0.4 MG/5 ML SYR (LEXISCAN) IV ONE
== END ==
LOC: CARD 12:40
PROVIDERS: ATTEND Internal Medicine
DX: I25.10 Atherosclerotic heart disease of native coronary artery without angina pectoris (principal); I51.7 Cardiomegaly
CPT/HCPCS: 93306

== ENCOUNTER 2021-03-10 09:42 | Outpatient (CLI) | payer MEDICARE ==
[~2021-03-10 09:42] MED LIST changes: -SULF1TAB35 PO; +SULF1TAB38 PO
== END 2021-03-10 10:13 ==
LOC: SLEEP 09:42
PROVIDERS: ATTEND Nurse Practitioner
DX: G47.33 Obstructive sleep apnea (adult) (pediatric) (principal); G47.10 Hypersomnia, unspecified
CPT/HCPCS: G0399

== ENCOUNTER → 2021-06-14 | Outpatient (CLI) | payer MEDICARE | LOC: LABNPT 06:44 | PROVIDERS: ATTEND Otolaryngology Otolaryngology/Facial Plastic Surgery | DX: G47.33 Obstructive sleep apnea (adult) (pediatric) (principal); Z20.822 Contact with and (suspected) exposure to COVID-19 | CPT/HCPCS: 87635 ==

== ENCOUNTER 2021-06-16 19:14 | Outpatient (CLI) | payer MEDICARE | END 2021-06-17 06:25 | disposition home or self-care (01) | LOC: SLEEP 19:14 | PROVIDERS: ATTEND Otolaryngology Otolaryngology/Facial Plastic Surgery | DX: G47.33 Obstructive sleep apnea (adult) (pediatric) (principal); I50.9 Heart failure, unspecified | CPT/HCPCS: 95811 ==

== ENCOUNTER → 2021-09-18 | Outpatient (CLI) | payer MEDICARE | LOC: CARD 13:00 | PROVIDERS: ATTEND Physician Assistant | DX: I10 Essential (primary) hypertension (principal); I25.10 Atherosclerotic heart disease of native coronary artery without angina pectoris | CPT/HCPCS: 93306 ==

== ENCOUNTER → 2022-05-29 | Outpatient (CLI) | payer MEDICARE ==
--- NOTE | 2022-05-29 15:32 | Diagnostic Imaging Report ---
EXAMINATION: Magnetic resonance imaging of the left shoulder without contrast. DATE: May 29, 2022. COMPARISON: None. HISTORY: 89-year-old female, left shoulder pain. TECHNIQUE: Magnetic Resonance Imaging sequences were performed of the shoulder without contrast. FINDINGS: ROTATOR CUFF, LIGAMENTS, TENDONS, AND MUSCLES: There is a full thickness, full width tear of the supraspinatus tendon with tendon retraction at least between the level of the superior humeral head and glenoid. There is infraspinatus tendinopathy. The teres minor tendon is intact. There is subscapularis tendinopathy. There is normal rotator cuff muscle bulk and signal. LONG HEAD OF BICEPS: The biceps labral attachment and long head of the biceps tendon are intact. The long head of the biceps tendon is normally positioned within the bicipital groove. GLENOHUMERAL JOINT: The humeral head is well positioned relative to the glenoid. There is no discretely identified labral tear. There is no identified paralabral cyst. There is low-level edema-like signal in the posterior inferior glenoid without a visible cartilage defect. There is a small glenohumeral joint effusion. ACROMIOCLAVICULAR JOINT: There are mild to moderate acromioclavicular degenerative changes with 3 mm undersurface osteophytes. The acromioclavicular joint is normally aligned. The coracoclavicular and coracoacromial ligaments are intact. BONE: There is no os acromiale. There is no Hill-Sachs deformity. There is no acute fracture, bone contusion, or evidence of osteonecrosis. BURSAE AND SOFT TISSUES: There is prominent fluid in the subacromial/subdeltoid bursa, consistent with the full-thickness rotator cuff tendon tear and/or bursitis. IMPRESSION: 1. Full thickness, full width tear of the supraspinatus tendon with tendon retraction at least between the level of the superior humeral head and glenoid. Infraspinatus and subscapularis tendinopathy. No fatty muscle atrophy. 2. Mild to moderate acromioclavicular degenerative changes with 3 mm undersurface osteophytes. 3. No discretely identified labral tear. There is low-level edema in the posterior inferior glenoid which may be degenerative related although there is no clearly identified cartilage defect. Small glenohumeral joint effusion. 4. No acute fracture or bone contusion. 5. Fluid in the subacromial/subdeltoid bursa, consistent with the full-thickness rotator cuff tendon tear and/or bursitis. Dictated by: Dictated on workstation # [id number]
--- NOTE | 2022-05-29 17:09 | Diagnostic Imaging Report ---
History: Left shoulder pain TECHNIQUE: 4 views of the left shoulder COMPARISON: None FINDINGS: No acute fracture seen in the left shoulder. Alignment appears normal. There is moderate to marked subacromial spurring. Joint spaces are preserved. IMPRESSION: 1. Subacromial spurring in the left shoulder with no acute osseous abnormality seen. Dictated by: Dictated on workstation # [id number]
== END ==
LOC: RAD 13:43
PROVIDERS: ATTEND Pain Medicine Interventional Pain Medicine
DX: M75.122 Complete rotator cuff tear or rupture of left shoulder, not specified as traumatic (principal); M19.012 Primary osteoarthritis, left shoulder
CPT/HCPCS: 73030; 73221

== ENCOUNTER 2022-08-22 14:54 | Emergency (ER) | payer MEDICARE ==
[2022-08-22 15:42] LABS: BASOPHILS # (AUTO) 0.1 10^3/uL (0.0-0.1); BASOPHILS % (AUTO) 1 % (0-10); EOSINOPHILS # (AUTO) 0.4 10^3/uL (0.0-0.3); EOSINOPHILS % (AUTO) 4 % (0-10); HEMATOCRIT 35 % (35-52); HEMOGLOBIN 10.8 g/dL (11.5-16.0); LYMPHOCYTES # (AUTO) 2.3 X 10^3 (1.0-4.0); LYMPHOCYTES % (AUTO) 25 % (12-44); MEAN CORPUSCULAR HEMOGLOBIN 30 pg (25-34); MEAN CORPUSCULAR HGB CONC 31 g/dL (32-36); MEAN CORPUSCULAR VOLUME 95 fL (80-99); MEAN PLATELET VOLUME 9.4 fL (9.0-12.2); MONOCYTES # (AUTO) 0.6 X 10^3 (0.0-1.0); MONOCYTES % (AUTO) 7 % (0-12); NEUTROPHILS # (AUTO) 5.9 X 10^3 (1.8-7.8); NEUTROPHILS % (AUTO) 64 % (42-75); PLATELET COUNT 356 10^3/uL (130-400); WHITE BLOOD COUNT 9.2 10^3/uL (4.3-11.0)
[2022-08-22 16:01] LABS: ALBUMIN 4.2 GM/DL (3.2-4.5)
[2022-08-22 16:02] LABS: CALCIUM 9.2 MG/DL (8.5-10.1)
[2022-08-22 16:04] LABS: TOTAL PROTEIN 7.5 GM/DL (6.4-8.2)
[2022-08-22 16:05] LABS: BILIRUBIN,TOTAL 0.2 MG/DL (0.1-1.0)
[2022-08-22 16:07] LABS: CREATININE SERUM 1.35 MG/DL (0.60-1.30)
[2022-08-22 16:08] LABS: BILIRUBIN,URINE NEGATIVE (NEGATIVE); CLARITY,URINE CLOUDY; COLOR,URINE YELLOW; GLUCOSE, URINE (UA) NEGATIVE (NEGATIVE); KETONES,URINE NEGATIVE (NEGATIVE); LEUKOCYTE ESTERASE ,URINE NEGATIVE (NEGATIVE); NITRITE,URINE NEGATIVE (NEGATIVE); PROTEIN,URINE NEGATIVE (NEGATIVE)
[2022-08-22 16:17] LABS: BACTERIA,URINE NEGATIVE /HPF; SQUAMOUS EPITHELIAL CELL,UR RARE /HPF
[2022-08-22] MEDS ORDERED: NS 100 ML (IVPB) BAG IV ONE (16:30)
[2022-08-22] MEDS ORDERED: IOHEXOL 350 MG/ML 100 ML (OMNIPAQUE 350) VIAL IV ONE (16:30)
--- NOTE | 2022-08-22 17:10 | Diagnostic Imaging Report ---
INDICATION: Right lower quadrant pain. EXAMINATION: CT abdomen and pelvis with contrast, 08/22/2022. All CT scans use one or more of the following dose optimizing techniques: automated exposure control, MA and/or KvP adjustment based on patient size and exam type or iterative reconstruction. COMPARISON: 02/04/2018. FINDINGS: There is a small nodule in the right lower lobe image #6 nonspecific in nature. Visualized upper abdomen demonstrates a normal appearance of the liver and spleen. There are postcholecystectomy changes. Small hiatal hernia noted. Adrenal glands unremarkable. Pancreas atrophied but otherwise normal. Benign-appearing cystic lesion in the left kidney noted with the right kidney unremarkable. There is diffuse atherosclerotic disease. Appendix normal. There is no obstructive process within the bowel loops with changes of diverticular disease. No acute diverticulitis. There is no ascites. No free air. No acute osseous abnormality. IMPRESSION: 1. Incidental findings as above with no acute process appreciated. Small nodule in the visualized right lower lobe should be followed using Fleischner criteria. 2. Not mentioned in the body of the report, there is a prominent nonspecific lymph node at the GE junction. Follow-up recommended. Dictated by: Dictated on workstation # [id number]
--- NOTE | 2022-08-22 17:44 | ED Abdominal Pain ---
General Chief Complaint: Abdominal/GI Problems Stated Complaint: LOWER ABD PAIN Nursing Triage Note: PT AMB TO [facility] 4 WITH C/O R SIDE PAIN SINCE LAST NIGHT. PT STATES SHE HAS MISSED A FEW DOSES OF HER MEDS THE LAST FEW DAYS. PT STATES SHE WAS SENT HERE FOR POSS APPY FROM DR KNIGHT OFFICE Source of Information: Patient Exam Limitations: No Limitations History of Present Illness Date Seen by Provider: Aug 22, 2022 Time Seen by Provider: 15:15 Initial Comments Patient is an 89-year-old female who presents to the emergency department for evaluation of right lower quadrant abdominal pain that began last night. Patient was seen at her PCPs office earlier today and referred here for further evaluation. Patient states the pain is improved at the time she presents to the emergency department compared to last night. States the pain does worsen with certain movements. Denies any fever, urinary symptoms, nausea/vomiting/diarrhea. No recent abdominal trauma. Allergies and Home Medications Allergies Coded Allergies: Cephalosporins (Verified Allergy, Unknown, 09/05/07) Tetanus Vaccines and Toxoid (Unverified Allergy, Unknown, 01/17/16) hydrochlorothiazide (Verified Allergy, Unknown, 09/05/07) terbinafine (Verified Allergy, Unknown, 09/05/07) Patient Home Medication List Home Medication List Reviewed: Yes Aspirin (Aspirin Ec 325 Mg) 325 Mg Tabec, 325 MG PO DAILY, (Reported) Entered as Reported by: LESLY KAMARA on 08/14/08 1536 Cholecalciferol (Vitamin D3) (Vitamin D3) 4,000 Unit Capsule, 4,000 UNIT PO DAILY, (Reported) Entered as Reported by: JOSE DAVID CRUZ on 10/21/12 0909 Ciprofloxacin HCl (Ciprofloxacin HCl) 500 Mg Tablet, 500 MG PO BID Prescribed by: ALVAREZ CHAMBERS on 02/04/18 2232 Clopidogrel Bisulfate (Plavix 75 Mg) 75 Mg Tablet, 75 MG PO DAILY, (Reported) Entered as Reported by: SAVANNA VALLADARES on 12/11/10 133 Glimepiride (Glimepiride) 1 Mg Tablet, 1 MG PO DAILY, (Reported) Entered as Reported by: SAVANNA VALLADARES on 12/11/10 133 Hydrochlorothiazide (Hydrochlorothiazide) 25 Mg Tablet, 25 MG PO DAILY, (Reported) Entered as Reported by: SAVANNA VALLADARES on 12/11/10 133 Hydrocodone Bit/Acetaminophen (Hydrocodon-Acetaminophen 5-500) 1 Each Tablet, 5- 500 MG PO DAILY PRN, (Reported) Entered as Reported by: SAVANNA VALLADARES on 12/11/10 133 Hydrocodone Bit/Acetaminophen (Vicodin 5-300 Mg Tablet) 1 Each Tablet, 1 EACH PO, (Reported) Entered as Reported by: YAEL SHEARER on 10/31/12 182 Isosorbide Mononitrate (Imdur) 30 Mg Tab, 30 MG PO DAILY, (Reported) Entered as Reported by: SAVANNA VALLADARES on 12/11/101329 Lisinopril (Prinivil) 10 Mg Tablet, 10 MG PO HS, (Reported) Entered as Reported by: MADISON ARIAS on 09/08/12 1405 Metronidazole (Metronidazole) 500 Mg Tablet, 500 MG PO BID Prescribed by: ALVAREZ CHAMBERS on 02/04/18 2232 Nebivolol Hcl (Bystolic) 2.5 Mg Tablet, 2.5 MG PO DAILY, (Reported) Entered as Reported by: SAVANNA VALLADARES on 12/11/101329 [place]-3/Dha/Epa/Fish Oil (Fish Oil 500 Mg Softgel) 1 Each Capsule, 1,500 MG PO BID, (Reported) Entered as Reported by: JOSE DAVID CRUZ on 10/21/12 09 Ondansetron Hcl (Zofran Oral Dissolve) 4 Mg Tab, 4 MG PO Q 6 HR PRN, (Reported) Entered as Reported by: YAEL SHEARER on 10/31/12 182 Prednisone (Prednisone) 20 Mg Tab, 40 MG PO DAILY Prescribed by: ALVAREZ CHAMBERS on 09/01/16 0133 Raloxifene Hcl (Evista) 60 Mg Tab, 60 MG PO DAILY, (Reported) Entered as Reported by: LESLY KAMARA on 08/14/08 1536 Simvastatin (Simvastatin) 20 Mg Tablet, 20 MG PO HS, (Reported) Entered as Reported by: JOSE DAVID CRUZ on 10/21/12 0909 Sitagliptin Phos/Metformin Hcl (Janumet 50-500 Mg Tablet) 1 Each Tablet, 5-500 MG PO DAILY, (Reported) Entered as Reported by: SAVANNA VALLADARES on 12/11/10 133 [Bromelain] , 1,500 MG PO DAILY, (Reported) Entered as Reported by: JOSE DAVID CRUZ on 10/21/12908 [Calcium] , 300 MG PO DAILY, (Reported) Entered as Reported by: JOSE DAVID CRUZ on 10/21/12908 [Glucosamine Hcl] , 300 MG PO DAILY, (Reported) Entered as Reported by: JOSE DAVID CRUZ on 10/21/12908 [green tea lakhwinder] , DAILY, (Reported) Entered as Reported by: MADISON ARIAS on 09/08/121404 [replenex] , DAILY, (Reported) Entered as Reported by: MADISON ARIAS on 09/08/121404 Review of Systems Review of Systems Constitutional: no symptoms reported EENTM: No Symptoms Reported Respiratory: No Symptoms Reported Cardiovascular: No Symptoms Reported Gastrointestinal: See HPI, Abdominal Pain Genitourinary: No Symptoms Reported Musculoskeletal: no symptoms reported Skin: no symptoms reported Psychiatric/Neurological: No Symptoms Reported Endocrine: No Symptoms Reported Hematologic/Lymphatic: No Symptoms Reported Past Ulzfejs-Znmpub-Vzelqf Hx Patient Social History Tobacco Use?: No Use of E-Cig and/or Vaping dev: No Substance use?: No Alcohol Use?: No Pt feels they are or have been: No Immunizations Up To Date Tetanus Booster (TDap): More than 5yrs Influenza Vaccine Up-to-Date: No; Not Current First/Initial COVID19 Vaccinat: YES Second COVID19 Vaccination Иван: YES Seasonal Allergies Seasonal Allergies: No Past Medical History Surgery/Hospitalization HX: STENTS, SHOULDER, RENAE, TONSILS EUGENE, HTN, DM, , HLD Surgeries: Yes (right rotator cuff 2013, coronary stents x3) Cardiac, Coronary Stent, Gallbladder, Orthopedic, Tonsillectomy Respiratory: No Cardiac: Yes (varicose veins) Chronic Edema/Swelling, Coronary Artery Disease, High Cholesterol, Hypertension Neurological: No Reproductive Disorders: No Sexually Transmitted Disease: No Genitourinary: Yes (stress incontinence) Gastrointestinal: Yes Gastroesophageal Reflux Musculoskeletal: Yes Arthritis Endocrine: Yes Diabetes, Non-Insulin dep HEENT: Yes Cataract Cancer: No Psychosocial: No Integumentary: No Blood Disorders: No Family Medical History No Pertinent Family Hx Physical Exam Vital Signs Vital Signs - First Documented 08/22/22 08/22/22 15:02 17:55 Temp 36.5 Pulse 72 Resp 20 B/P (MAP) 183/84 (117) Pulse Ox 96 Capillary Refill : Height/Weight/BMI Height: 5'5.00" Weight: 195lbs. 0.0oz. [id number]; 34.89 BMI Method:Stated General Appearance: WD/WN, no apparent distress HEENT: PERRL/EOMI, normal ENT inspection, TMs normal Neck: non-tender, full range of motion, supple Respiratory: chest non-tender, lungs clear, normal breath sounds, no respiratory distress Cardiovascular: regular rate, rhythm Gastrointestinal: normal bowel sounds, soft, tenderness Neurologic/Psychiatric: no motor/sensory deficits, alert, normal mood/affect, oriented x 3 Skin: normal color, warm/dry Progress/Results/Core Measures Results/Orders Lab Results Laboratory Tests Test 08/22/22 15:28 08/22/22 16:05 Range/Units White Blood Count 9.2 4.3-11.0 10^3/uL Red Blood Count 3.64 L 3.80-5.11 10^6/uL Hemoglobin 10.8 L 11.5-16.0 g/dL Hematocrit 35 35-52 % Mean Corpuscular Volume 95 80-99 fL Mean Corpuscular Hemoglobin 30 25-34 pg Mean Corpuscular Hemoglobin Concent 31 L 32-36 g/dL Red Cell Distribution Width 14.3 10.0-14.5 % Platelet Count 356 130-400 10^3/uL Mean Platelet Volume 9.4 9.0-12.2 fL Immature Granulocyte % (Auto) 0 % Neutrophils (%) (Auto) 64 42-75 % Lymphocytes (%) (Auto) 25 12-44 % Monocytes (%) (Auto) 7 0-12 % Eosinophils (%) (Auto) 4 0-10 % Basophils (%) (Auto) 1 0-10 % Neutrophils # (Auto) 5.9 1.8-7.8 X 10^3 Lymphocytes # (Auto) 2.3 1.0-4.0 X 10^3 Monocytes # (Auto) 0.6 0.0-1.0 X 10^3 Eosinophils # (Auto) 0.4 H 0.0-0.3 10^3/uL Basophils # (Auto) 0.1 0.0-0.1 10^3/uL Immature Granulocyte # (Auto) 0.0 0.0-0.1 10^3/uL Sodium Level 136 135-145 MMOL/L Potassium Level 5.0 3.6-5.0 MMOL/L Chloride Level 102 98-107 MMOL/L Carbon Dioxide Level 23 21-32 MMOL/L Anion Gap 11 5-14 MMOL/L Blood Urea Nitrogen 35 H 7-18 MG/DL Creatinine 1.35 H 0.60-1.30 MG/DL Estimat Glomerular Filtration Rate 38 BUN/Creatinine Ratio 26 Glucose Level 103 70-105 MG/DL Calcium Level 9.2 8.5-10.1 MG/DL Corrected Calcium 9.0 8.5-10.1 MG/DL Total Bilirubin 0.2 0.1-1.0 MG/DL Aspartate Amino Transf (AST/SGOT) 15 5-34 U/L Alanine Aminotransferase (ALT/SGPT) 17 0-55 U/L Alkaline Phosphatase 55 40-136 U/L Total Protein 7.5 6.4-8.2 GM/DL Albumin 4.2 3.2-4.5 GM/DL Urine Color YELLOW Urine Clarity CLOUDY Urine pH 6.0 5-9 Urine Specific [place] 1.010 L 1.016-1.022 Urine Protein NEGATIVE NEGATIVE Urine Glucose (UA) NEGATIVE NEGATIVE Urine Ketones NEGATIVE NEGATIVE Urine Nitrite NEGATIVE NEGATIVE Urine Bilirubin NEGATIVE NEGATIVE Urine Urobilinogen 0.2 < = 1.0 MG/DL Urine Leukocyte Esterase NEGATIVE NEGATIVE Urine RBC (Auto) NEGATIVE NEGATIVE Urine RBC NONE /HPF Urine WBC NONE /HPF Urine Squamous Epithelial Cells RARE /HPF Urine Crystals NONE /LPF Urine Bacteria NEGATIVE /HPF Urine Casts NONE /LPF Urine Mucus NEGATIVE /LPF Urine Culture Indicated NO My Orders Orders - 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 Vital signs are reassuring. Abdominal exam is reassuring with only mild right lower quadrant tenderness to palpation. Patient was ambulatory to the room without issue. Abdomen is not distended or rigid. There is no guarding with palpation. Orders placed for CBC, CMP, urinalysis, IV insertion, CT abdomen/pelvis with contrast. CBC is largely unremarkable and is a very mild anemia. CMP without concerning findings. There is some mild elevation in BUN and creatinine. Urinalysis reassuring. CT of the abdomen pelvis reveals no acute abnormality. There is incidental notation of a lung nodule as well as a prominent lymph node about the GE junction. Neither of these seem correlative with etiology of patient's pain given physical exam. Patient did not want any analgesia while in the emergency department. Discussed supportive care and anticipatory guidance. Follow-up with PCP. Return precautions for urgent symptomology discussed. Patient verbalized understanding. Departure Impression Primary Impression: Right sided abdominal pain Disposition: HOME, SELF-CARE Condition: Stable Departure-Patient Inst. Decision time for Depature: 17:40 Referrals: EVITA SARAVIA DO (PCP/Family) Primary Care Physician Patient Instructions: Abdominal Pain, Adult ED MAKEDA SOTELO APRN Aug 22, 2022 17:44
[2022-08-22 17:55] VITALS: BP 159/65
== END 2022-08-22 17:55 | disposition home or self-care (01) ==
LOC: EDUNIT# 14:54 → ER 14:57
DX: R10.31 Right lower quadrant pain (principal); D64.9 Anemia, unspecified; R79.89 Other specified abnormal findings of blood chemistry; Z90.49 Acquired absence of other specified parts of digestive tract
CPT/HCPCS: 36415; 74177; 80053; 81000; 85025